=== PATIENT | female | born 1990 | race Caucasian/White ===

== ENCOUNTER 2017-02-22 05:06 | Emergency (ER) | payer OTHER ==
[~2017-02-22] VITALS: Ht 167.6 cm; Wt 98.0 kg
[~2017-02-22 05:06] MED LIST: ACET-141 PO; ACET325T33 PO; CYCL-319 PO; IBUP-1542 PO; IBUP800T25 PO; NAPR-260 PO; NITR-58 PO; ONDA4TAB8 PO
[2017-02-22 05:07] VITALS: Ht 167.6 cm; Wt 98.0 kg
[2017-02-22] MEDS ORDERED: morphine 4 MG/ML VIAL IV STA (05:18)
[2017-02-22] MEDS ORDERED: SOD CHLORIDE 0.9% 1,000 ML IV STA (05:18)
[2017-02-22] MEDS ORDERED: KETOROLAC 30 MG INJ IV STA (05:18)
[2017-02-22] MEDS ORDERED: ONDANSETRON 4 MG INJ IV STA (05:18)
--- NOTE | 2017-02-22 05:55 | ERD ---
ER Documentation Chief Complaint Chief Complaint right flank pain since 3 hours ago HPI This is a 26-year-old female presenting to emergency department with right- sided flank pain 2 days. Patient states pain worsened over the last 3 hours. Patient states she has sharp right-sided flank pain and rates pain 10/10. Patient states pain radiates from right flank to right pelvis and groin. No dysuria or hematuria. No fevers or chills. No nausea, vomiting or diarrhea. No constipation. ROS All systems reviewed and are negative except as per history of present illness. Medications Home Meds Active Scripts Nitrofurantoin Monohyd Macrocr* (Macrobid*) 100 Mg Capsr, 100 MG PO BID for 5 Days, CAP Prov:MEME CHOI NP 03/24/16 Ibuprofen* (Motrin*) 600 Mg Tab, 600 MG PO Q6, #15 TAB Prov:MEME CHOI NP 03/24/16 Ondansetron Hcl* (Zofran*) 4 Mg Tablet, 4 MG PO Q6H for NAUSEA AND/OR VOMITING, #10 TAB Prov:MEME CHOI NP 03/24/16 Acetaminophen* (Tylenol*) 325 Mg Tablet, 2 TAB PO Q8 Y for PAIN AND OR ELEVATED TEMP, #20 TAB [facility] 01/07/16 Naproxen* (Naprosyn*) 500 Mg Tablet, 500 MG PO BID Y for PAIN AND/OR INFLAMMATION, #20 TAB Prov:[facility] 01/07/16 Acetaminophen* (Acetaminophen*) 500 MG Extra Strength Tablet, 500 MG PO Q4H Y for PAIN AND OR ELEVATED TEMP, #20 TAB Prov:KARL ROMERO PA-C 09/07/15 Ibuprofen* (Motrin*) 600 Mg Tab, 600 MG PO Q6, #30 TAB Prov:KARL ROMERO PA-C 09/07/15 Nitrofurantoin Monohyd Macrocr* (Macrobid*) 100 Mg Capsr, 100 MG PO BID for 5 Days, CAP Prov:MEME CHOI NP 06/03/15 Cyclobenzaprine Hcl* (Cyclobenzaprine Hcl*) 10 Mg Tablet, 10 MG PO TID, #15 TAB Prov:MEME CHOI NP 2/6/16 Ibuprofen* (Motrin*) 800 Mg Tab, 800 MG PO Q6, #30 TAB Prov:MEME CHOI INSTALL AND REPAIR TECHNICIAN 06/03/15 Allergies Allergies: Coded Allergies: No Known Drug Allergies (Verified Allergy, Unknown, 09/07/15) PMhx/Soc Medical and Surgical Hx: pt denies Surgical Hx History of Surgery: No Anesthesia Reaction: No Hx Neurological Disorder: Yes (Migraine HAs) Hx Respiratory Disorders: No Hx Cardiac Disorders: No Hx Psychiatric Problems: No Hx Miscellaneous Medical Probl: Yes (kidney stones 2005) Hx Alcohol Use: Yes Hx Substance Use: Yes (marijuana) Hx Tobacco Use: Yes Smoking Status: Current every day smoker Physical Exam Vitals Vital Signs Date Time Temp Pulse Resp B/P Pulse Ox O2 Delivery O2 Flow Rate FiO2 02/22/17 05:07 97.8 88 20 126/61 99 Physical Exam Const: alert, crying Head: Atraumatic Eyes: Normal Conjunctiva ENT: Normal External Ears, Nose and Mouth. Neck: Full range of motion..~ No meningismus. Resp: Clear to auscultation bilaterally Cardio: Regular rate and rhythm, no murmurs Abd: Soft, non tender, non distended. Normal bowel sounds Skin: No petechiae or rashes Back: No midline or flank tenderness. No CVA tenderness Ext: No cyanosis, or edema Neur: Awake and alert Psych: Normal Mood and Affect Results 24 hrs Laboratory Tests Test 02/22/17 05:54 Bedside Urine pH (LAB) 7.0 Bedside Urine Protein (LAB) Trace Bedside Urine Glucose (UA) Negative Bedside Urine Ketones (LAB) Negative Bedside Urine Blood Trace-intact Bedside Urine Nitrite (LAB) Negative Bedside Urine Leukocyte Esterase (L 1+ Current Medications Medications (Trade) Dose Ordered Sig/Rahel Route PRN Reason Start Time Stop Time Status Last Admin Dose Admin Sodium Chloride (NS) 1,000 ml @ 1,000 mls/hr Q1H STAT IV 02/22/17 05:18 02/22/17 06:17 02/22/17 05:53 Morphine Sulfate (morphine) 4 mg ONCE STAT IV 02/22/17 05:18 02/22/17 05:20 DC 02/22/17 05:54 Ondansetron HCl (Zofran Inj) 4 mg ONCE STAT IV 02/22/17 05:18 02/22/17 05:20 DC 02/22/17 05:53 Ketorolac Tromethamine (Toradol) 30 mg ONCE STAT IV 02/22/17 05:18 02/22/17 05:20 DC 02/22/17 05:53 Procedures/MDM This is a 26-year-old female presenting to emerge department with right flank pain 2 days that worsened over the last 3 hours. Patient is afebrile and vital signs are stable. CBC, CMP, lipase, urine dip and urine ordered. IV access obtained and labs drawn. Patient given morphine 4 mg IV, Toradol 30 mg IV and Zofran 4 mg IV. Patient also given 1 L IV fluid bolus of normal saline. Urine dip shows 1+ leukocyte esterase, trace blood and trace protein. Urine negative. Patient signed out to Kirsten Sullivan NP pending labs and CT abdomen/pelvis results. Departure Diagnosis: Primary Impression: Flank pain Condition: Stable MEME CHOI NP Feb 22, 2017 05:55
--- NOTE | 2017-02-22 06:46 | RADRPT ---
PROCEDURE: CT abdomen and pelvis without contrast. CLINICAL INDICATION: Right flank pain TECHNIQUE: CT scan of the abdomen and pelvis without contrast was performed and is reconstructed a t 2.5 mm contiguous axial intervals from the dome of the diaphragm to the inferior pubic rami.. The patient was scanned without intravenous contrast. Sagittal and coronal reformatted images were obt ained from the axial source images. The calculated radiation dose measures 1419 mGy centimeters. The CTDI measures 22 mGy. Individualized dose optimization technique was used for the performance of this exam. This included 1. Automated exposure control. 2. Adjustment of the mA and / or kV according to the patient's size. 3. Use of iterative reconstructed technique. COMPARISON: None FINDINGS: The lung bases are clear of any infiltrate or nodule. No effusion is seen. The liver is of normal size, contour and attenuation with no mass or ductal dilatation. No gallston es are visualized. No splenic, adrenal or pancreatic abnormalities present. Kidneys are of normal size and contour. There is mild right hydroureter nephrosis with a 3 mm calc ulus immediately superjacent to the ureterovesicular junction. The left intrarenal collecting system and ureter are of normal course and caliber. No renal mass or calculus is seen.. No bladder mass o r stone is present. Uterus is normal. No adnexal mass is visualized. There is no aneurysm. No adenopathy is present. No bowel mass or obstruction is present. The appendix is normal. No phlegmon, ascites or pneumop eritoneum is visualized. The osseous structures are intact. IMPRESSION: Mild right hydroureter nephrosis with 3 mm calculus distal ureter. .Raudel Bowman MD, Date Time Electronically viewed and signed by .Raudel Bowman MD, MD on 02/22/2017 06:45 .A/
[2017-02-22] MEDS ORDERED: HYDR-906 PO (06:57)
[2017-02-22] MEDS ORDERED: IBUP-1542 PO (06:57)
[2017-02-22] MEDS ORDERED: CEPH-443 PO (07:00)
--- NOTE | 2017-02-22 07:07 | EN ---
Date/Time of Note Date/Time of Note DATE: 02/22/17 TIME: 07:02 ER Progress Note Patient sent out to me by Meme Choi NP pending CT and lab test results. Patient presented to ED for right flank pain. Patient has no history of kidney stone. CBC, CMP, and lipase are unremarkable. UA has 1+ leukocyte, trace blood, negative nitrite. PROCEDURE: CT abdomen and pelvis without contrast. CLINICAL INDICATION: Right flank pain TECHNIQUE: CT scan of the abdomen and pelvis without contrast was performed and is reconstructed at 2.5 mm contiguous axial intervals from the dome of the diaphragm to the inferior pubic rami.. The patient was scanned without intravenous contrast. Sagittal and coronal reformatted images were obtained from the axial source images. The calculated radiation dose measures 1419 mGy centimeters. The CTDI measures 22 mGy. Individualized dose optimization technique was used for the performance of this exam. This included 1. Automated exposure control. 2. Adjustment of the mA and / or kV according to the patient's size. 3. Use of iterative reconstructed technique. COMPARISON: None FINDINGS: The lung bases are clear of any infiltrate or nodule. No effusion is seen. The liver is of normal size, contour and attenuation with no mass or ductal dilatation. No gallstones are visualized. No splenic, adrenal or pancreatic abnormalities present. Kidneys are of normal size and contour. There is mild right hydroureter nephrosis with a 3 mm calculus immediately superjacent to the ureterovesicular junction. The left intrarenal collecting system and ureter are of normal course and caliber. No renal mass or calculus is seen.. No bladder mass or stone is present. Uterus is normal. No adnexal mass is visualized. There is no aneurysm. No adenopathy is present. No bowel mass or obstruction is present. The appendix is normal. No phlegmon , ascites or pneumoperitoneum is visualized. The osseous structures are intact. IMPRESSION: Mild right hydroureter nephrosis with 3 mm calculus distal ureter. .Raudel Bowman MD, Date Time Electronically viewed and signed by .Raudel Bowman MD, on 02/22/2017 06: 45 .A/ CC: MEME CHOI NP Medical decision-making: Patient has a nonobstructing stone in the distal ureter. Her urine is negative, I doubt ectopic , ovarian torsion, or ruptured ovarian cyst. She is comfortable and pain-free after morphine and Toradol in the ED. Patient advised to follow-up with her PCP for a urology referral. Patient appears well, stable for discharge and outpatient management. Medical decision making shared with patient and family. Education provided to patient and family. Patient and family expressed understanding of the plan. Medications on discharge: Ibuprofen, [place]. Follow-up: Primary care provider in 2-3 days or return to ED if worse. Disclaimer: Inadvertent spelling and grammatical errors are likely due to EHR/ dictation software use and do not reflect on the overall quality of patient care. Also, please note that the electronic time recorded on this note does not necessarily reflect the actual time of the patient encounter. SIMI TORRES NP Feb 22, 2017 07:07
[2017-02-22 07:13] VITALS: BP 128/61; PULSE 66; RESP 20; TEMP 98.7
[2017-02-22] MEDS ORDERED: HYDROCODONE/APAP (5/325) TAB PO ONE (07:30)
== END 2017-02-22 07:19 | disposition home or self-care (01) ==
LOC: FTE 05:06
DX: R10.9 Unspecified abdominal pain (principal); F17.210 Nicotine dependence, cigarettes, uncomplicated
CPT/HCPCS: 36415; 74176; 80053; 81003; 83690; 85025; 96374; 96375; J1885; J2270; J2405; J7030; Z7502; Z7610

== ENCOUNTER 2017-03-28 19:01 | Emergency (ER) | payer OTHER ==
[~2017-03-28] VITALS: Ht 167.6 cm; Wt 97.7 kg
[~2017-03-28 19:01] MED LIST changes: +CEPH-443 PO; +HYDR-906 PO
[2017-03-28 19:18] VITALS: Ht 167.6 cm; Wt 97.7 kg
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
[2017-03-28 21:08] LABS: BASOPHIL # 0.1 10^3/ul (0.0-0.1); BASOPHILS % 0.7 % (0.0-2.0); EOSINOPHILS # 0.4 10^3/ul (0.0-0.5); EOSINOPHILS % 3.9 % (0.0-7.0); HEMATOCRIT 39.3 % (37.0-47.0); LYMPHOCYTES # 2.8 10^3/ul (0.8-2.9); LYMPHOCYTES % 27.2 % (15.0-51.0); MEAN CORPUSCULAR HEMOGLOBIN 28.4 pg (29.0-33.0); MEAN CORPUSCULAR HGB CONC 33.1 g/dl (32.0-37.0); MEAN PLATELET VOLUME 10.5 fl (7.4-10.4); MONOCYTES % 9.3 % (0.0-11.0); NEUTROPHIL # 6.1 10^3/ul (1.6-7.5); NEUTROPHILS % 58.3 % (39.0-77.0); PLATELET COUNT 275 10^3/UL (140-415); RED BLOOD COUNT 4.57 10^6/ul (4.20-5.40); RED CELL DISTRIBUTION WIDTH 13.4 % (11.5-14.5); WHITE BLOOD COUNT 10.5 10^3/ul (4.8-10.8)
[2017-03-28 21:34] LABS: ALANINE AMINOTRANSFERASE 135 IU/L (13-69); ALBUMIN/GLOBULIN RATIO 1.33; ALKALINE PHOSPHATASE 157 IU/L (42-121); ANION GAP 13 (8-16); ASPARTATE AMINO TRANSFERASE 65 IU/L (15-46); BILIRUBIN,INDIRECT 0.3 mg/dl (0-1.1); BILIRUBIN,TOTAL 0.3 mg/dl (0.2-1.3); BLOOD UREA NITROGEN 16 mg/dl (7-20); CALCIUM 9.5 mg/dl (8.4-10.2); CARBON DIOXIDE 24 mmol/L (21-31); CHLORIDE 106 mmol/L (97-110); CREATININE 0.87 mg/dl (0.44-1.00); GLUCOSE 104 mg/dl (70-220); POTASSIUM 3.7 mmol/L (3.5-5.1); SODIUM 139 mmol/L (135-144)
[2017-03-28 21:37] LABS: C-REACTIVE PROTEIN < 0.5 mg/dl (0.0-0.9)
--- NOTE | 2017-03-28 21:39 | RADRPT ---
PROCEDURE: CR Left Elbow CLINICAL INDICATION: Pain TECHNIQUE: AP, lateral, and an oblique radiographs were submitted. COMPARISON: None FINDINGS: Osseous Structures: The osseous elements appear well mineralized and intact. Joint Spaces: The joint spaces are well maintained. No joint effusion is evident. Soft Tissues: There is mild soft tissue swelling dorsal to the olecranon. IMPRESSION: 1. Soft tissue swelling dorsal to the olecranon, probably related to olecranon bursitis. 2. Otherwise, unremarkable left elbow series. Physician Apple Date Time Electronically viewed and signed by Yanique Dailey Physician on 03/28/2017 21:38 /
[2017-03-28] MEDS ORDERED: NAPR-260 PO (22:32)
== END 2017-03-28 22:56 | disposition home or self-care (01) ==
LOC: FTE 19:01
DX: M70.22 Olecranon bursitis, left elbow (principal); Y93.9 Activity, unspecified; Z87.891 Personal history of nicotine dependence
CPT/HCPCS: 36415; 73080; 80053; 85025; 85651; 86140; Z7502

== ENCOUNTER 2018-01-12 14:18 | Emergency (ER) | END 2018-01-12 18:48 | disposition home or self-care (01) ==

== ENCOUNTER 2018-03-26 19:53 | Emergency (ER) | END 2018-03-26 23:12 | disposition home or self-care (01) ==

== ENCOUNTER 2018-04-01 11:08 | Emergency (ER) | END 2018-04-01 11:38 | disposition left against medical advice (07) ==

== ENCOUNTER 2018-04-01 11:38 | Emergency (ER) | END 2018-04-01 15:13 | disposition home or self-care (01) ==

== ENCOUNTER 2018-05-09 16:31 | Emergency (ER) | payer OTHER ==
[~2018-05-09] VITALS: Wt 101.8 kg
[~2018-05-09 16:31] MED LIST changes: -CYCL-319 PO; +CYCL10TA7 PO; +D-ME473S2 PO; +DOXY100T20 PO; +HYDR-4011 PO; -HYDR-906 PO; -IBUP800T25 PO; +IBUP800T48 PO; -NAPR-260 PO; +NAPR-985 PO
[2018-05-09 16:32] VITALS: BP 141/81; PULSE 88; RESP 18
[2018-05-09] MEDS ORDERED: ACETAMINOPHEN 500 MG TAB PO STA (18:30)
[2018-05-09] MEDS ORDERED: OXYMETAZOLINE 0.05% 15 ML NAS SPRAY NASAL ONE (18:30)
--- NOTE | 2018-05-09 19:34 | ERD ---
ER Documentation Chief Complaint Chief Complaint FLU LIKE SYMPTOMS X 2 DAYS, COUGH,RUNNY NOSE HPI 27-year-old female 15 weeks presenting with complaints of flulike symptoms for the past 2 days. She complains of cough and runny nose. She has a history of migraines and currently due to her congestion, her headaches have worsened. She has been unable to take any medications due to her . She denies any associated fevers or chills. No abdominal pain, chest pain, shortness of breath, or dysuria. Her headache is throbbing, on the right side and in the back of her head, nonradiating, 8 out of 10, with no alleviating or exacerbating factors. She denies any photophobia, vomiting, nausea, phonophobia or neck stiffness. ROS All systems reviewed and are negative except as per history of present illness. Medications Home Meds Active Scripts Cephalexin* (Keflex*) 500 Mg Capsule, 500 MG PO BID for 7 Days, CAP Prov:ADITI EDGE PA-C 03/26/18 Acetaminophen* (Tylenol*) 325 Mg Tablet, 2 TAB PO Q6 PRN for PAIN AND OR ELEVATED TEMP, #30 TAB Prov:GAEL ALFREDO PA-C 01/12/18 Dextromethorphan Hb-Promethazine Hcl* (Promethazine DM* Syrup) 473 Ml Syrup, 5 ML PO Q6 PRN for COUGH, #60 ML Prov:GAEL ALFREDO PA-C 01/12/18 Doxycycline Hyclate* (Doxycycline Hyclate*) 100 Mg Tablet.dr, 100 MG PO BID for 10 Days, TAB Prov:GAEL ALFREDO PA-C 01/12/18 Naproxen* (Naprosyn*) 500 Mg Tablet, 500 MG PO BID PRN for PAIN AND/OR INFLAMMATION, #30 TAB Prov:ANKIT LAUREANO 03/28/17 Cephalexin* (Keflex*) 500 Mg Capsule, 500 MG PO BID for 7 Days, CAP Prov:SIMI TORRES. [employer] SYSTEMS ENGINEER 02/22/17 Hydrocodone/Acetaminophen ([place] 5-325 Tablet) 1 Each Tablet, 1 TAB PO Q6H PRN for SEVERE PAIN LEVEL 7-10, #7 TAB Prov:SIMI TORRES. ROB[employer] SYSTEMS ENGINEER 02/22/17 Ibuprofen* (Motrin*) 600 Mg Tab, 600 MG PO Q6H PRN for PAIN AND OR ELEVATED TEMP, #30 TAB Prov:SIMI TORRESAmber MATHEWS 02/22/17 Nitrofurantoin Monohyd Macrocr* (Macrobid*) 100 Mg Capsr, 100 MG PO BID for 5 Days, CAP Prov:MEME CHOI NP 03/24/16 Ibuprofen* (Motrin*) 600 Mg Tab, 600 MG PO Q6, #15 TAB Prov:MEME CHOI NP 03/24/16 Ondansetron Hcl* (Zofran*) 4 Mg Tablet, 4 MG PO Q6H for NAUSEA AND/OR VOMITING, #10 TAB Prov:MEME CHOI NP 03/24/16 Acetaminophen* (Tylenol*) 325 Mg Tablet, 2 TAB PO Q8 PRN for PAIN AND OR ELEVATED TEMP, #20 TAB Prov:ROSLYN,[facility] 01/07/16 Naproxen* (Naprosyn*) 500 Mg Tablet, 500 MG PO BID PRN for PAIN AND/OR INFLAMMATION, #20 TAB Prov[facility] 01/07/16 Acetaminophen* (Acetaminophen*) 500 MG Extra Strength Tablet, 500 MG PO Q4H PRN for PAIN AND OR ELEVATED TEMP, #20 TAB Prov:KARL ROMERO PA-C 09/07/15 Ibuprofen* (Motrin*) 600 Mg Tab, 600 MG PO Q6, #30 TAB Prov:KARL ROMERO PA-C 09/07/15 Nitrofurantoin Monohyd Macrocr* (Macrobid*) 100 Mg Capsr, 100 MG PO BID for 5 Days, CAP Prov:MEME CHOI NP 06/03/15 Cyclobenzaprine Hcl* (Cyclobenzaprine Hcl*) 10 Mg Tablet, 10 MG PO TID, #15 TAB Prov:MEME CHOI NP 06/03/15 Ibuprofen* (Motrin*) 800 Mg Tab, 800 MG PO Q6, #30 TAB Prov:MEME CHOI NP 06/03/15 Allergies Allergies: Coded Allergies: No Known Drug Allergies (Verified Allergy, Unknown, 09/07/15) PMhx/Soc History of Surgery: No Anesthesia Reaction: No Hx Neurological Disorder: Yes (Migraine HAs) Hx Respiratory Disorders: No Hx Cardiac Disorders: No Hx Psychiatric Problems: No Hx Miscellaneous Medical Probl: Yes (kidney stones 2005) Hx Alcohol Use: No Hx Substance Use: No Hx Tobacco Use: No Smoking Status: Never smoker FmHx Family History: No diabetes Physical Exam Vitals Vital Signs Date Temp Pulse Resp B/P (MAP) Pulse Ox O2 O2 Flow FiO2 Time Delivery Rate 05/09/18 98.5 88 18 141/81 99 16:32 (101) Physical Exam Const: No acute distress, nontoxic Head: Atraumatic Eyes: Normal Conjunctiva, PERRLA ENT: Normal External Ears, Nose and Mouth. Posterior oropharynx normal without erythema or exudate. No stridor. Neck: Full range of motion. No meningismus. No cervical lymphadenopathy Resp: Clear to auscultation bilaterally Cardio: Regular rate and rhythm, no murmurs Abd: Soft, non tender, non distended. Normal bowel sounds Skin: No petechiae or rashes Back: No midline or flank tenderness Ext: No cyanosis, or edema Neur: Awake and alert, oriented, normal speech, no facial asymmetry, moving all extremities Psych: Normal Mood and Affect Results 24 hrs Current Medications Medications Dose Sig/[place] Start Time Status Last (Trade) Ordered Route PRN Stop Time Admin Dose Reason Admin 1,000 mg ONCE STAT 05/09/18 DC 05/09/18 Acetaminophen PO 18:30 18:43 (Tylenol 05/09/18 18:32 Tab) 2 spray ONCE ONCE 05/09/18 DC 05/09/18 Oxymetazoline NASAL 18:30 18:49 HCl (Afrin 05/09/18 18:32 Girdler) Procedures/MDM EMERGENT LABS AND DIAGNOSTIC STUDIES: Lab Results above were reviewed and interpreted by me. Rapid influenza negative Initial Nursing notes reviewed. Previous Medical Records requested via the Electronic Health Record. EMERGENCY DEPARTMENT COURSE / MEDICAL DECISION MAKING: Patient is presenting with likely of flulike illness with exacerbation of her chronic headaches. She is afebrile, well-appearing, neurovascularly intact with stable vitals. She was treated with Tylenol 1 g p.o. and provided with Afrin for her nasal congestion. Patient states that her headache has not significantly improved. At this point, given she is , we are limited with our treatment options. I recommended rest, Tylenol, and plenty of hydration at home. If any of her symptoms are to worsen, she was instructed to return to the emergency room. At this point I doubt any meningitis, encephalitis, subarachnoid hemorrhage, intracranial hemorrhage, or increased intracranial pressure. Patient's blood pressure was elevated (>120/80) but appears stable without hung dence of hypertensive emergency or urgency. The patient was counseled about the risks of hypertension and urged to pursue outpatient monitoring and therapy within a week with their primary care physician. Departure Diagnosis: Primary Impression: Headache Headache type: tension-type Headache chronicity pattern: episodic headache Intractability: not intractable Qualified Codes: G44.219 - Episodic tension-type headache, not intractable Additional Impression: URI (upper respiratory infection) URI type: unspecified URI Qualified Codes: J06.9 - Acute upper respiratory infection, unspecified Condition: Stable AUSTIN FUNG MD May 09, 2018 19:34
== END 2018-05-09 19:51 | disposition home or self-care (01) ==
LOC: FTE 16:31
DX: O99.355 Diseases of the nervous system complicating the puerperium (principal); O99.512 Diseases of the respiratory system complicating pregnancy, second trimester; Z3A.15 15 weeks gestation of pregnancy
CPT/HCPCS: 87400; Z7502; Z7610; 99283

== ENCOUNTER 2018-06-20 14:33 | Outpatient (CLI) | payer OTHER ==
[~2018-06-20] VITALS: Ht 162.6 cm; Wt 104.1 kg
[2018-06-20 14:49] VITALS: Ht 162.6 cm; Wt 104.1 kg
[2018-06-20 14:50] VITALS: BP 125/58; PULSE 88; RESP 20
--- NOTE | 2018-06-20 16:41 | TRIAGE ---
OB Triage Datetime Report Generated by CPN: 06/20/2018 16:41 Datetime: 06/20/2018 14:44 Time of Arrival: 06/20/2018 14:20 EGA: 21.2 Arrived By: Ambulatory Arrived From: Home Chief Complaint: HEADACHE (HX MIGRAINES) VOMITING FEVER Movement: Present Contractions: Denies/Absent Rupture of Membranes: Denies Vaginal Bleeding: None Vaginal Discharge: Denies Recent Sexual Intercouse: Denies Abdominal Trauma: Not Applicable Patient Complaints: None Provider Notified: DR PAZ Initial Plan: EFM,CALL DR PAZ Datetime: 06/20/2018 14:42 Maternal Assessment Level of Consciousness: Fully Conscious DTR's/Clonus: DTRs 2+; No Clonus Headache: Denies Blurred Vision: No Respiratory Effort: Unlabored; Regular Rhythm; Equal Expansion Breath Sounds, Left: Clear and Equal Breath Sounds, Right: Clear and Equal Nausea/Vomiting: Denies RUQ Epigastric Pain: Denies Facial Edema: None Temperature Route: Axillary Fall Risk Assessment History of Falling: (0) No Secondary Diagnosis: (0) No Ambulatory Aid: (0) Bedrest/Nurse Assist IV Therapy: (0) No Gait: (0) Normal/Bedrest/Immobile Mental Status: (0) Oriented to Own Ability Fall Score: 0 Fall Risk Score Definition: No Risk: No action required Datetime: 06/20/2018 14:40 Maternal Assessment Level of Consciousness: Fully Conscious DTR's/Clonus: DTRs 2+ Headache: Generalized Blurred Vision: No Nausea/Vomiting: Denies RUQ Epigastric Pain: Denies Facial Edema: None Labor Evaluation Frequency: NONE Heart Rate FHR Baseline Rate: 145 Monitor Mode: Doppler Vaginal Exam Membrane Status: Intact
--- NOTE | 2018-06-20 17:02 | PN ---
Triage Information Date/Time 06/20/18 Reason for visit: vomiting x4 headache entire head started from occipital region, aggrevated with bending down Weeks of Gestation 21w2d /Para Diabetes: none Hypertention: none Additional information pelvic discomfort on and off urinary frequency today known to have migrane for the last 3-4 yrs but never vomit,denies any flash light headache is 10/10 denies any diarrhea Objective Vital Signs Date Temp Pulse Resp B/P (MAP) Pulse Ox O2 O2 Flow FiO2 Time Delivery Rate 06/20/18 98.2 88 20 125/58 98 Room Air 14:50 (80) Heart Rate: 140's Contractions: None Exam CVA neg for tenderness abdomen soft neg for tenderness Results/Medications Results 24 hrs Laboratory Tests Test 06/20/18 15:00 Urine Color YELLOW Urine Clarity CLEAR Urine pH 7.0 Urine Specific [place] 1.010 Urine Ketones 1+ H Urine Nitrite NEGATIVE Urine Bilirubin NEGATIVE Urine Urobilinogen NEGATIVE Urine Leukocyte Esterase NEGATIVE Urine Hemoglobin NEGATIVE Urine Glucose NEGATIVE Urine Total Protein NEGATIVE Imaging Results CVL 4.0cm Disposition: Assessment/Plan A IUP 21w2d headache P to ER for futher evaluation EDEL PAZ MD Jun 20, 2018 17:02
== END 2018-06-20 16:40 | disposition home or self-care (01) ==
LOC: L-D 14:33 → OBT 14:33
PROVIDERS: ATTEND Obstetrics & Gynecology
DX: O26.892 Other specified pregnancy related conditions, second trimester (principal); R51 Headache; Z3A.21 21 weeks gestation of pregnancy
CPT/HCPCS: 76817; 81003; 87086; Z7500; G0463

== ENCOUNTER 2018-06-20 16:47 | Emergency (ER) | payer SELFPAY ==
[~2018-06-20] VITALS: Wt 103.6 kg
[2018-06-20 16:52] VITALS: BP 124/58; PULSE 80; RESP 18
== END 2018-06-20 18:46 | disposition left against medical advice (07) ==
LOC: FTE 16:47
DX: Z53.21 Procedure and treatment not carried out due to patient leaving prior to being seen by health care provider (principal)

== ENCOUNTER 2018-08-03 20:11 | Outpatient (CLI) | payer OTHER ==
[~2018-08-03] VITALS: Ht 162.6 cm; Wt 108.5 kg
[2018-08-03 20:34] VITALS: Ht 162.6 cm; Wt 108.5 kg
[2018-08-03] MEDS ORDERED: PREN-93 PO (20:34)
[2018-08-03 20:36] VITALS: BP 139/74; PULSE 94; RESP 20
[2018-08-03] MEDS: TERBUTALINE 1 MG/ML INJ SC SCH ×2 (21:26→22:55)
[2018-08-03] MEDS ORDERED: LACTATED RINGER'S 1,000 ML IV ONE (21:30)
[2018-08-03] MEDS ORDERED: LACTATED RINGER'S 1,000 ML IV* SCH (22:00)
[2018-08-03] MEDS ORDERED: NIFEdipine 10 MG CAP PO ONE (23:30)
[2018-08-04] MEDS ORDERED: NIFEdipine 10 MG CAP PO SCH (06:10)
--- NOTE | 2018-08-04 06:43 | PN ---
Triage Information Date/Time August 04, 2018 Reason for visit: Uterine contractions Weeks of Gestation 27w 5d /Para 4/3 Diabetes: none Hypertention: none Additional information Pt has been cramping q 4 to 5 minutes and having a constant back pain since 1500 on 08/03. No bleeding or leaking. PMHx: none. PSHx: none. NKDA. Objective Vital Signs Date Temp Pulse Resp B/P (MAP) Pulse Ox O2 O2 Flow FiO2 Time Delivery Rate 08/03/18 98.2 94 20 139/74 Room Air 20:36 (95) Heart Rate: 150's Heart Rate Comments Good heart rate accels to 170 BPM. No decels. Contractions: < 5 Minutes Apart Results/Medications Result Diagram: 08/03/18213908/03/182139 Results 24 hrs Laboratory Tests Test 08/03/18 20:05 08/03/18 21:40 Urine Color YELLOW Urine Clarity SLIGHTLY CLOUDY A Urine pH 6.0 Urine Specific [place] 1.018 Urine Ketones 1+ H Urine Nitrite NEGATIVE Urine Bilirubin NEGATIVE Urine Urobilinogen NEGATIVE Urine Leukocyte Esterase TRACE A Urine Microscopic RBC 2 Urine Microscopic WBC 6 H Urine Squamous Epithelial Cells FEW Urine Bacteria FEW A Urine Mucus FEW A Urine Hemoglobin NEGATIVE Urine Glucose 1+ H Urine Total Protein NEGATIVE White Blood Count 11.3 H Red Blood Count 4.07 L Hemoglobin 11.8 L Hematocrit 35.2 L Mean Corpuscular Volume 86.5 Mean Corpuscular Hemoglobin 29.0 Mean Corpuscular Hemoglobin Concent 33.5 Red Cell Distribution Width 13.2 Platelet Count 228 # Mean Platelet Volume 10.3 Immature Granulocytes % 2.300 H Neutrophils % 64.9 Lymphocytes % 18.8 Monocytes % 11.5 H Eosinophils % 2.0 Basophils % 0.5 Nucleated Red Blood Cells % 0.0 Immature Granulocytes # 0.260 H Neutrophils # 7.3 Lymphocytes # 2.1 Monocytes # 1.3 H Eosinophils # 0.2 Basophils # 0.1 Nucleated Red Blood Cells # 0.0 Sodium Level 138 Potassium Level 3.3 L Chloride Level 105 Carbon Dioxide Level 22 Anion Gap 11 Blood Urea Nitrogen 9 Creatinine 0.57 Est Glomerular Filtrat Rate mL/min > 60 Glucose Level 97 Calcium Level 9.4 Total Bilirubin 0.3 Direct Bilirubin 0.00 Indirect Bilirubin 0.3 Aspartate Amino Transf (AST/SGOT) 17 Alanine Aminotransferase (ALT/SGPT) 21 Alkaline Phosphatase 74 Total Protein 6.6 Albumin 3.5 Globulin 3.10 Albumin/Globulin Ratio 1.12 Medications Current Medications Lactated Ringer's 1,000 ml @ 125 mls/hr Q8H IV* Last administered on 08/03/18at 22:54; Admin Dose 125 MLS/HR; Start 08/03/18 at 22:00 Nifedipine (Procardia) 20 mg Q6 PO ; Start 08/04/18 at 06:10 Betamethasone Acet/Betameth SodPhos (Celestone Soluspan) 12 mg ONCE ONCE IM ; Start 08/04/18 at 07:00; Stop 08/04/18 at 07:01; Status UNV Imaging Results EFW 1234 grams, S=D. Anterior placenta, no previa. Cx 3.2 cm and closed. Transverse lie. POLYHYDRAMNIOS with an MALLORIE of 27 cm. Disposition: Discharge Assessment/Plan A: IUP at 27w 5d. False labor. Polyhydramnios. P: After 2 doses of terbutaline and one dose of Procardia 20 mg the contractions have spaced out substantially to q 30 minutes. Will give another dose of Procardia and then send the pt out with a Rx for Procardia 10 mg q 6 hours x 1 weeks. Will give one dose of beta methasone now and pt to return sometime tomorrow for a repeat dose. Pt to keep her appt at her clinic tomorrow. GLADIS MCGUIRE MD Aug 04, 2018 06:43
[2018-08-04] MEDS ORDERED: BETAMET NA PHOS/AC(6 MG/ML) 2 ML INJ SYG IM ONE (07:00)
--- NOTE | 2018-08-04 07:44 | TRIAGE ---
OB Triage Datetime Report Generated by CPN: 08/04/2018 07:43 Datetime: 08/04/2018 07:05 Assessment Type: Triage Datetime: 08/04/2018 07:04 Comments: REPORT REICEVED FROM REBBECA RN Datetime: 08/04/2018 05:23 Heart Rate FHR Baseline Rate: 140 Monitor Mode: External US Datetime: 08/04/2018 02:41 Pain Assessment Pain Scale: 3 Pain Presence: Intermittent Pain Type: Contraction; Ache Pain Location: Back Pain Relief Measures: Comfort Measures Datetime: 08/04/2018 01:41 Stage of : OB Triage Datetime: 08/03/2018 23:10 Stage of : OB Triage Comments: EFM removed per Dr.Reiche order Datetime: 08/03/2018 21:40 Assessment Type: Triage Datetime: 08/03/2018 21:26 Stage of : OB Triage Datetime: 08/03/2018 21:00 Stage of : OB Triage Labor Evaluation Frequency: 2-5 Monitor Mode: External Duration (sec)2399: 40-50 Quality: Mild Pattern: Normal: <= 5 Contractions in 10 Minutes Resting Tone [place]: Relaxed Heart Rate FHR Baseline Rate: 145 Monitor Mode: External US Variability: Moderate 6-25 bpm Accelerations: 10X10 Decelerations: Variable Comments: Appropriate for gestational age Datetime: 08/03/2018 20:45 Stage of : OB Triage Datetime: 08/03/2018 20:21 Stage of : OB Triage Assessment Type: Triage Time of Arrival: 08/03/2018 20:00 EGA: 27.4 Arrived By: Wheelchair Arrived From: Home Chief Complaint: Cramping q4-5mins with constant lower back pain Movement: Present Contractions: Regular Contractions: q4-5mins Rupture of Membranes: Denies Vaginal Bleeding: None Vaginal Discharge: Present Recent Sexual Intercouse: Denies Abdominal Trauma: Not Applicable Patient Complaints: Contractions; Cramping; Back Pain Time Provider Notified: 08/03/2018 20:45 Provider Notified: Initial Plan: UA, CBC, CMP, U/S for EFW _ cervical length, IV bolus with LR, Terbutaline Maternal Assessment Level of Consciousness: Fully Conscious DTR's/Clonus: DTRs 2+; No Clonus Headache: Denies Blurred Vision: No Respiratory Effort: Unlabored; Regular Rhythm; Equal Expansion Breath Sounds, Left: Clear and Equal Breath Sounds, Right: Clear and Equal Nausea/Vomiting: Denies RUQ Epigastric Pain: Denies Lower Extremities Edema: Bilateral Lower Extremities Degree: 2+ Upper Extremities Edema: None Degree: None Facial Edema: None Temperature Route: Oral Fall Risk Assessment History of Falling: (0) No Secondary Diagnosis: (0) No Ambulatory Aid: (0) Bedrest/Nurse Assist IV Therapy: (0) No Gait: (0) Normal/Bedrest/Immobile Mental Status: (0) Oriented to Own Ability Fall Score: 0 Fall Risk Score Definition: No Risk: No action required Pain Assessment Pain Scale: 7 Pain Presence: Intermittent Pain Type: Cramping; Sharp; Contraction; Ache Pain Location: Abdomen; Back Pain Relief Measures: Comfort Measures Datetime: 06/20/2018 14:44 EGA: 21.2 Datetime: 06/20/2018 14:42 Fall Score: 0 Fall Risk Score Definition: No Risk: No action required
== END 2018-08-04 07:37 | disposition home or self-care (01) ==
LOC: OBT 20:11 → L-D 20:12 → OBT 08-04 07:37
PROVIDERS: ATTEND Obstetrics & Gynecology
DX: O47.02 False labor before 37 completed weeks of gestation, second trimester (principal); O40.2XX0 Polyhydramnios, second trimester, not applicable or unspecified; Z3A.27 27 weeks gestation of pregnancy
CPT/HCPCS: 36415; 76815; 76817; 80053; 81001; 85025; 87086; 96360; 96361; 96372; J0702; J3105; J7120; Z7500; Z7610; G0463

== ENCOUNTER 2018-08-05 13:44 | Outpatient (CLI) | payer OTHER ==
[~2018-08-05] VITALS: Ht 162.6 cm; Wt 108.0 kg
[~2018-08-05 13:44] MED LIST changes: -ACET-141 PO; -ACET325T33 PO; -CEPH-443 PO; -CYCL10TA7 PO; -D-ME473S2 PO; -DOXY100T20 PO; -HYDR-4011 PO; -IBUP-1542 PO; -IBUP800T48 PO; -NAPR-985 PO; -NITR-58 PO; -ONDA4TAB8 PO; +PREN-93 PO
[2018-08-05 14:26] VITALS: Ht 162.6 cm; Wt 108.0 kg
[2018-08-05 14:27] VITALS: BP 130/62; PULSE 99
[2018-08-05] MEDS ORDERED: BETAMET NA PHOS/AC(6 MG/ML) 2 ML INJ SYG IM SCH (14:30)
--- NOTE | 2018-08-05 16:32 | PN ---
Triage Information Date/Time Reason for visit: Receiving second dose of betamethasone Weeks of Gestation 27 weeks and 6 days /Para Diabetes: none Hypertention: none Objective Vital Signs Date Temp Pulse Resp B/P (MAP) Pulse Ox O2 O2 Flow FiO2 Time Delivery Rate 08/05/18 98.2 99 130/62 Room Air 14:27 (84) Heart Rate: 130's Contractions: None Disposition: Discharge Assessment/Plan 27 years old with single intrauterine at the 27 weeks and 6 days present for receiving second dose of betamethasone for threatened labor. She states good movement. She denies nausea, vomiting, shortness of breath, chest pain, headache, visual changes, vaginal bleeding or LOF. -FHR: No sign of metabolic acidosis- Category I -Contractions: None -She received the second dose of steroids -Symptoms and sign of labor, preeclampsia, kick count discussed with patient, she voiced understanding. All of her questions answered. -Patient was discharged home in stable condition with the appropriate discharge instructions provided. I would like patient to have close follow-up with her primary physician or outpatient clinic in 1-2 days or return to triage for worsening symptoms or any other urgent concerns. JAXON GOVEA Aug 05, 2018 16:32
== END 2018-08-05 16:19 | disposition home or self-care (01) ==
LOC: L-D 13:44 → OBT 13:44 → L-D 14:01 → OBT 16:19
PROVIDERS: ATTEND Obstetrics & Gynecology
DX: O36.8920 Maternal care for other specified fetal problems, second trimester, not applicable or unspecified (principal); Z3A.27 27 weeks gestation of pregnancy
CPT/HCPCS: J0702; Z7500; G0463

== ENCOUNTER 2018-09-18 21:11 | Inpatient (IN) | payer OTHER ==
[~2018-09-18] VITALS: Ht 162.6 cm; Wt 112.4 kg
[2018-09-18 21:04] VITALS: Ht 162.6 cm; Wt 112.4 kg
[2018-09-18 21:21] VITALS: BP 130/62; PULSE 87; RESP 18
[2018-09-18] MEDS ORDERED: LACTATED RINGER'S 1,000 ML IV ONE (23:00)
--- NOTE | 2018-09-18 23:21 | HP ---
Date/Time of Note Date/Time of Note DATE: 09/18/18 TIME: 23:19 OB - History Hx of Present Free Text/Dictation 27-year-old 4 para 3 at 34 weeks and 1 day of gestation with estimated date of delivery November 01, 2018 She presents with chief complaint of uterine contractions every 3 to 5 minutes Patient reports positive movement, denies vaginal bleeding or leaking fluid Patient reports being admitted to the hospital in July 2018 with contractions She received betamethasone for lung maturity Additionally she was treated for urinary tract infection at that time Estimated Due Date: Nov 01, 2018 : 4 Para: 3 Care: Good Care Obstetrical Complications: Other ( contractions) Past Family/Social History * Past Medical, Surgical, Family and Obstetric Histories reviewed from chart. OB Admission Exam Vital Signs Vital Signs Vital Signs Date Temp Pulse Resp B/P (MAP) Pulse Ox O2 O2 Flow FiO2 Time Delivery Rate 09/18/18 98.5 87 18 130/62 Room Air 21:21 (84) Physical Exam HEENT: WNL Heart: Rhythm Normal Lungs: Clear, Equal Abdomen: WNL Extremities: Normal Reflexes: Normal Cervical Dilatation: 1cm Effacement: 25% Station: -3 Membranes: Intact Heart Rate: 140's Accelerations: Accelerations Present Decelerations: No Decelerations Varibility: Moderate Contractions on Admission: < 5 Minutes Apart Intensity: Moderate Last 72 hours Lab Results Urine Results - 72 Hrs Test 09/18/18 22:35 Urine Color YELLOW (YELLOW) Urine Clarity CLOUDY (CLEAR) A Urine pH 6.0 (5.0-9.0) Urine Specific [place] 1.020 (1.003-1.030) Urine Ketones NEGATIVE mg/dL (NEGATIVE) Urine Nitrite NEGATIVE mg/dL (NEGATIVE) Urine Bilirubin NEGATIVE mg/dL (NEGATIVE) Urine Urobilinogen 1+ mg/dL (NEGATIVE) H Urine Leukocyte Esterase 3+ Ivonne/ul (NEGATIVE) H Urine Microscopic RBC 5 /HPF (0-5) Urine Microscopic WBC 21 /HPF (0-5) H Urine Squamous Epithelial Cells MODERATE /HPF (FEW) Urine Calcium Oxalate Crystals FEW /HPF (NONE SEEN) A Urine Bacteria FEW /HPF (NONE SEEN) A Urine Hemoglobin 1+ mg/dL (NEGATIVE) H Urine Glucose NEGATIVE mg/dL (NEGATIVE) Urine Total Protein NEGATIVE mg/dl (NEGATIVE) Hematology - 72 Hrs Test 09/18/18 23:50 Hematocrit 35.6 % (37.0-47.0) L Hemoglobin 11.8 g/dl (12.0-16.0) L Mean Corpuscular Hemoglobin 28.5 pg (29.0-33.0) L Mean Corpuscular Hemoglobin Concent 33.1 g/dl (32.0-37.0) Mean Corpuscular Volume 86.0 fl (82.0-101.0) Mean Platelet Volume 11.1 fl (7.4-10.4) H Platelet Count 231 10^3/UL (140-415) Red Blood Count 4.14 10^6/ul (4.20-5.40) L Red Cell Distribution Width 13.5 % (11.5-14.5) White Blood Count 9.3 10^3/ul (4.8-10.8) Chemistry Test 09/18/18 23:50 Sodium Level 136 mmol/L (135-144) Potassium Level 3.7 mmol/L (3.5-5.1) Chloride Level 106 mmol/L (97-110) Carbon Dioxide Level 23 mmol/L (21-31) Anion Gap 7 (5-13) Blood Urea Nitrogen 8 mg/dl (7-20) Creatinine 0.46 mg/dl (0.44-1.00) Est Glomerular Filtrat Rate mL/min > 60 mL/min (>60) Glucose Level 84 mg/dl (70-220) Calcium Level 9.5 mg/dl (8.4-10.2) Total Bilirubin 0.4 mg/dl (0.2-1.3) Direct Bilirubin 0.00 mg/dl (0.00-0.20) Indirect Bilirubin 0.4 mg/dl (0-1.1) Aspartate Amino Transf (AST/SGOT) 22 IU/L (15-46) Alanine Aminotransferase (ALT/SGPT) 19 IU/L (13-69) Alkaline Phosphatase 113 IU/L (42-121) Total Protein 6.5 g/dl (6.1-8.1) Albumin 3.5 g/dl (3.3-4.9) Globulin 3.00 g/dl (1.3-3.2) Albumin/Globulin Ratio 1.16 PROCEDURE: US OB biophysical profile. CLINICAL INDICATION: Contractions TECHNIQUE: Multiple sonographic images of the pelvis were obtained. The images were reviewed on a PACS workstation. COMPARISON: US PELVIS 03/26/2018 FINDINGS: Single live intrauterine gestation. MALLORIE = 21.6 cm. Cardiac activity is present with 137 beats per minute. Cephalic presentation. Placental location is anterior. No evidence of previa or abruption. Biophysical profile as follows: movement 2/2 tone 2/2 breathing 2/2 MALLORIE 2/2 Total 12/03 IMPRESSION: Biophysical profile 12/03. RPTAT: [facility] Physician Yessica Date Time Electronically viewed and signed by Physician Yessica on 09/19/2018 00:16 xB/ CC: JONATHAN MARTINEZ MD [id number] PROCEDURE: US OB. CLINICAL INDICATION: labor TECHNIQUE: Multiple sonographic images of the pelvis were obtained. The images were reviewed on a PACS workstation. COMPARISON: US PELVIS 09/18/2018; US 08/03/2018 FINDINGS: There is a single live intrauterine gestation. Cardiac activity is present with beats per minute. Cephalic presentation. Measurements were made in order to determine age. The results are as follows: BPD = 9.13 cm 37 weeks 0 days HC = 32.74 cm 37 weeks 1 day AC = 30.50 cm 34 weeks 3 days FL = 6.47 cm 33 weeks 3 days Estimated gestational age of approximately 35 weeks 4 days. The estimated date of delivery is 10/20/2018. Estimated weight = 2490 grams (5 lb 8 oz), at 60th percentile on current exam. No anatomic abnormalities demonstrated. The placenta is anterior. There is no evidence for an abruption or placenta previa. Amniotic fluid volume appears adequate. IMPRESSION: Single live intrauterine gestation of measuring approximately 35 8 weeks 4 days. Estimated [id number] grams. RPTAT: [facility] x-Erasmo Bowns, Physician Date Time Electronically viewed and signed by Physician Yessica on 09/19/2018 01:35 xB/ CC: JONATHAN MARTINEZ MD [id number] OB Assessment/Plan Reason for admission: labor, other (Polyhydramnios and urinary tract infection) Other plan: Urinalysis consistent with UTI Urine culture was sent IV antibiotics IV fluids Patient received terbutaline subQ x2 Initiate second set of betamethasone for lung maturity Perinatology consultation Copies To: CC: FRANCO MOORE MD ; JONATHAN MARTINEZ MD September 18, 2018 23:21
[2018-09-19] MEDS ORDERED: LACTATED RINGER'S 1,000 ML IV SCH
[2018-09-19] MEDS ORDERED: TERBUTALINE 1 MG/ML INJ SC ONE ×2 (00:30→01:00)
[2018-09-19] MEDS: BETAMET NA PHOS/AC(6 MG/ML) 2 ML INJ SYG IM SCH (02:31)
--- NOTE | 2018-09-19 02:52 | TRIAGE ---
OB Triage Datetime Report Generated by CPN: 09/19/2018 02:51 Datetime: 09/19/2018 01:30 Monitor Mode: External US Datetime: 09/19/2018 01:29 Labor Evaluation Frequency: IRREGULAR Monitor Mode: External Duration (sec)2399: 50-60 Quality: Moderate Pattern: Normal: <= 5 Contractions in 10 Minutes Resting Tone Corrigan: Relaxed Heart Rate FHR Baseline Rate: 125 Monitor Mode: External US Variability: Moderate 6-25 bpm Accelerations: 15X15 Decelerations: None Category: Category I Datetime: 09/19/2018 01:19 Monitor Mode: External Monitor Mode: External US Datetime: 09/19/2018 01:00 Labor Evaluation Frequency: X2 Monitor Mode: External Duration (sec)2399: 50-60 Quality: Mild Pattern: Normal: <= 5 Contractions in 10 Minutes Resting Tone Corrigan: Relaxed Heart Rate FHR Baseline Rate: 125 Monitor Mode: External US FHR Baseline Changes: No Baseline Change Variability: Moderate 6-25 bpm Accelerations: 15X15 Decelerations: None Category: Category I Datetime: 09/19/2018 00:11 Vaginal Bleeding: None Maternal Assessment Level of Consciousness: Fully Conscious DTR's/Clonus: DTRs 2+; No Clonus Headache: Denies Blurred Vision: No Respiratory Effort: Unlabored; Regular Rhythm; Equal Expansion Breath Sounds, Left: Clear and Equal Breath Sounds, Right: Clear and Equal Nausea/Vomiting: Denies RUQ Epigastric Pain: Denies Facial Edema: None Fall Risk Assessment History of Falling: (0) No Secondary Diagnosis: (0) No Ambulatory Aid: (0) Bedrest/Nurse Assist IV Therapy: (0) No Gait: (0) Normal/Bedrest/Immobile Mental Status: (0) Oriented to Own Ability Fall Score: 0 Fall Risk Score Definition: No Risk: No action required Datetime: 09/19/2018 00:00 Labor Evaluation Frequency: 6 Monitor Mode: External Duration (sec)2399: 70 Quality: Mild Pattern: Normal: <= 5 Contractions in 10 Minutes Resting Tone Corrigan: Relaxed Heart Rate FHR Baseline Rate: 125 Monitor Mode: External US FHR Baseline Changes: No Baseline Change Variability: Moderate 6-25 bpm Accelerations: 15X15 Decelerations: None Category: Category I Pain Assessment Pain Scale: 8 Pain Presence: Intermittent Pain Type: Contraction Pain Location: Abdomen Datetime: 09/18/2018 23:44 Monitor Mode: External US Datetime: 09/18/2018 23:21 Monitor Mode: External US Datetime: 09/18/2018 23:00 Labor Evaluation Frequency: 2-4 Monitor Mode: External Duration (sec)2399: 50-90 Quality: Moderate Pattern: Normal: <= 5 Contractions in 10 Minutes Resting Tone Corrigan: Relaxed Heart Rate FHR Baseline Rate: 125 Monitor Mode: External US Variability: Moderate 6-25 bpm Accelerations: 15X15 Decelerations: None Category: Category I Datetime: 09/18/2018 22:32 Vaginal Exam Dilatation (cms): 1.0 Effacement (%): 20 Station: -3 Exam By: LUCY Rao RN Membrane Status: Intact Cervix, Position: Posterior Datetime: 09/18/2018 22:00 Labor Evaluation Frequency: NONE Monitor Mode: External Heart Rate FHR Baseline Rate: 130 Monitor Mode: External US Variability: Moderate 6-25 bpm Accelerations: 15X15 Decelerations: None Category: Category I Datetime: 09/18/2018 21:42 Time of Arrival: 09/18/2018 21:04 EGA: 34.1 Arrived By: Ambulatory Arrived From: Home Chief Complaint: c/o cramping and lower back pain that has gotten worse since this morning Movement: Present Contractions: Occasional Time Contractions Began: 09/18/2018 07:00 Contractions: 6 in one hour Rupture of Membranes: Denies Vaginal Bleeding: None Vaginal Discharge: Present Recent Sexual Intercouse: Denies Abdominal Trauma: Not Applicable Patient Complaints: Cramping; Back Pain Time Provider Notified: 09/18/2018 22:05 Provider Notified: JUAN Initial Plan: EFM Datetime: 09/18/2018 21:40 Monitor Mode: External Datetime: 09/18/2018 21:21 Stage of : OB Triage Assessment Type: Triage Maternal Assessment Level of Consciousness: Fully Conscious DTR's/Clonus: DTRs 2+; No Clonus Headache: Denies Blurred Vision: No Respiratory Effort: Unlabored; Regular Rhythm; Equal Expansion Breath Sounds, Left: Clear and Equal Breath Sounds, Right: Clear and Equal Nausea/Vomiting: Denies RUQ Epigastric Pain: Denies Facial Edema: None Temperature Route: Oral Fall Risk Assessment History of Falling: (0) No Secondary Diagnosis: (0) No Ambulatory Aid: (0) Bedrest/Nurse Assist IV Therapy: (0) No Gait: (0) Normal/Bedrest/Immobile Mental Status: (0) Oriented to Own Ability Fall Score: 0 Fall Risk Score Definition: No Risk: No action required Pain Assessment Pain Scale: 8 Pain Presence: Intermittent Pain Type: Cramping Pain Location: Back (Annotations: lower abdomen) Datetime: 08/05/2018 15:16 Labor Evaluation Frequency: 0 Monitor Mode: External Resting Tone Corrigan: Relaxed Heart Rate FHR Baseline Rate: 145 Monitor Mode: External US Variability: Moderate 6-25 bpm Accelerations: 10X10 Decelerations: None Category: Category I Pain Assessment Pain Scale: 0 Pain Presence: None/Denies Pain Type: N/A Datetime: 08/05/2018 14:31 Stage of : OB Triage Assessment Type: Triage Maternal Assessment Level of Consciousness: Fully Conscious DTR's/Clonus: DTRs 2+; No Clonus Headache: Denies Blurred Vision: No Respiratory Effort: Unlabored; Regular Rhythm; Equal Expansion Breath Sounds, Left: Clear and Equal Breath Sounds, Right: Clear and Equal Nausea/Vomiting: Denies RUQ Epigastric Pain: Denies Facial Edema: None Temperature Route: Axillary Fall Risk Assessment History of Falling: (0) No Secondary Diagnosis: (0) No Ambulatory Aid: (0) Bedrest/Nurse Assist IV Therapy: (0) No Gait: (0) Normal/Bedrest/Immobile Mental Status: (0) Oriented to Own Ability Fall Score: 0 Fall Risk Score Definition: No Risk: No action required Datetime: 08/05/2018 14:25 Time of Arrival: 08/05/2018 14:30 EGA: 27.6 Arrived By: Ambulatory Arrived From: Home Chief Complaint: 2ND DOSE OF BETHAMETASONE Movement: Present Contractions: Denies/Absent Rupture of Membranes: Denies Vaginal Bleeding: None Vaginal Discharge: Denies Recent Sexual Intercouse: Denies Abdominal Trauma: Not Applicable Initial Plan: APPLIED MONITORS, MD Datetime: 08/05/2018 14:19 Comments: MONITORS APPLIED Datetime: 08/04/2018 07:04 Stage of : OB Triage Datetime: 08/04/2018 07:00 Stage of : OB Triage Labor Evaluation Frequency: x1 with irritability Monitor Mode: External Duration (sec)2399: 20-70 Quality: Mild Pattern: Normal: <= 5 Contractions in 10 Minutes Resting Tone Corrigan: Relaxed Datetime: 08/04/2018 06:34 Stage of : OB Triage Temperature Route: Oral Pain Assessment Pain Scale: 3 Pain Presence: Intermittent Pain Type: Cramping Pain Location: Abdomen; Back Pain Relief Measures: Comfort Measures Datetime: 08/04/2018 06:30 Stage of : OB Triage Datetime: 08/04/2018 06:00 Stage of : OB Triage Labor Evaluation Frequency: x3 Monitor Mode: External Duration (sec)2399: 40-80 Quality: Mild Pattern: Normal: <= 5 Contractions in 10 Minutes Resting Tone Corrigan: Relaxed Heart Rate FHR Baseline Rate: 140 Monitor Mode: External US Datetime: 08/04/2018 05:00 Stage of : OB Triage Labor Evaluation Frequency: Irritability Monitor Mode: External Duration (sec)2399: 20-30 Quality: Mild Pattern: Normal: <= 5 Contractions in 10 Minutes Resting Tone Corrigan: Relaxed Datetime: 08/04/2018 04:00 Stage of : OB Triage Labor Evaluation Frequency: None Monitor Mode: External Resting Tone Corrigan: Relaxed Datetime: 08/04/2018 03:00 Stage of : OB Triage Labor Evaluation Frequency: Occasional Monitor Mode: External Duration (sec)2399: 40 Quality: Mild Pattern: Normal: <= 5 Contractions in 10 Minutes Resting Tone Corrigan: Relaxed Datetime: 08/04/2018 02:00 Stage of : OB Triage Labor Evaluation Frequency: Irritability Monitor Mode: External Duration (sec)2399: 20-30 Quality: Mild Pattern: Normal: <= 5 Contractions in 10 Minutes Resting Tone Corrigan: Relaxed Datetime: 08/04/2018 01:00 Stage of : OB Triage Labor Evaluation Frequency: x1 with irritability Monitor Mode: External Duration (sec)2399: 20-110 Quality: Mild Pattern: Normal: <= 5 Contractions in 10 Minutes Resting Tone Corrigan: Relaxed Comments: Pt reports positive movt. Datetime: 08/04/2018 00:04 Temperature Route: Oral Contraction Comments: Pt reports feeling 3 uc's in last hr Datetime: 08/04/2018 00:00 Stage of : OB Triage Labor Evaluation Frequency: Occasional Monitor Mode: External Duration (sec)2399: 40 Quality: Mild Pattern: Normal: <= 5 Contractions in 10 Minutes Resting Tone Corrigan: Relaxed Datetime: 08/03/2018 23:00 Stage of : OB Triage Labor Evaluation Frequency: Irregular Monitor Mode: External Duration (sec)2399: 40-60 Quality: Mild Pattern: Normal: <= 5 Contractions in 10 Minutes Resting Tone Corrigan: Relaxed Heart Rate FHR Baseline Rate: 145 Monitor Mode: External US FHR Baseline Changes: No Baseline Change Variability: Moderate 6-25 bpm Accelerations: 15X15 Decelerations: Variable Datetime: 08/03/2018 22:00 Stage of : OB Triage Labor Evaluation Frequency: Irregular Monitor Mode: External Duration (sec)2399: 40-70 Quality: Mild Pattern: Normal: <= 5 Contractions in 10 Minutes Resting Tone Corrigan: Relaxed Heart Rate FHR Baseline Rate: 145 Monitor Mode: External US FHR Baseline Changes: No Baseline Change Variability: Moderate 6-25 bpm Accelerations: 15X15 Datetime: 08/03/2018 21:49 Stage of : OB Triage Datetime: 08/03/2018 20:21 EGA: 27.4 Fall Score: 0 Fall Risk Score Definition: No Risk: No action required Datetime: 06/20/2018 14:44 EGA: 21.2 Datetime: 06/20/2018 14:42 Fall Score: 0 Fall Risk Score Definition: No Risk: No action required
[2018-09-19] MEDS: SOD CHLORIDE 0.9% 1,000 ML IV SCH ×4 (02:55→20:39)
[2018-09-19] MEDS: CEFTRIAXONE 1 GM/50 ML (PMX) 50 ML IVPB SCH (02:56)
[2018-09-19] MEDS: PRENATAL VITAMIN PO SCH (09:33)
--- NOTE | 2018-09-19 10:28 | QN ---
Documentation Comment progress note patient seen and evaluated no complaints vs stable afebrile ab gravid nt no cva b/l extremity no edema no calf tenderness a/ iup at 34 wks ga, tptl, uti, increase laurie currently on steroid treatment p/ perinatology consult FRANCO MOORE MD September 19, 2018 10:28
[2018-09-19] MEDS ORDERED: ACETAMINOPHEN 325 MG TAB PO PRN (17:28)
[2018-09-20] MEDS: BETAMET NA PHOS/AC(6 MG/ML) 2 ML INJ SYG IM SCH (02:40)
[2018-09-20] MEDS: CEFTRIAXONE 1 GM/50 ML (PMX) 50 ML IVPB SCH (02:51)
[2018-09-20] MEDS: SOD CHLORIDE 0.9% 1,000 ML IV SCH ×3 (05:25→21:45)
--- NOTE | 2018-09-20 08:56 | CONS ---
Consultation Date/Type/Reason Admit Date/Time September 18, 2018 at 23:55 Date of Consultation: September 20, 2018 Type of Consult Medicine Reason for Consultation Requested by Dr. Ching to estate planning counselor mother regarding anticipated course and potential complications associated with delivery at 34 completed weeks having completed 2 full course of steroids. Mother is a 27 yo [id number] with EDC 10/29/2018 ( EGA 34 3/7 wks). labs: HBsAg-, RPR NR, HIV -, Rubella immune, and GBS Unknown. Past history of labor associated with UTI in 07/2018. Admitted to L&D and received full course of steroids. Developed recurrent labor 09/18 and admitted to L&D, treated with Terbutaline X 2, and steroids repeated early AM 09/19 and 09/20. Again, UTI detected and treated with Rocephin. Discussed with mother requirement for infants born at 34 completed weeks to be monitored in NICU. Discussed possibility of respiratory complications and requirement for respiratory support, although diminished due to steroids. Discussed possibility of infection complications, but unlikely. Emph asized likelihood of feeding problems, temperature instability, and jaundice. Mother appeared to understand and asked appropriate questions. Assured mother of availability to answer further questions should they arise. Date/Time of Note DATE: 09/20/18 TIME: 08:38 Past Medical History Home Meds Reported Medications Vit No.124/Iron/FA ( Vitamin Tablet) 1 Each Tablet, 1 EACH PO DAILY, TAB 08/03/18 Medications Current Medications Prenat Multivit/ General Production Worker/Iron/Folic Ac () 1 tab DAILY PO Last administered on 09/19/18at 09:33; Admin Dose 1 TAB; Start 09/19/18 at 09:00 Ceftriaxone Sodium 50 ml @ 100 mls/hr Q24H IVPB Last administered on 09/20/18at 02:51; Admin Dose 100 MLS/HR; Start 09/19/18 at 02:30 Sodium Chloride 1,000 ml @ 125 mls/hr Q8H IV Last administered on 09/20/18at 05:25; Admin Dose 125 MLS/HR; Start 09/19/18 at 02:30 Acetaminophen (Tylenol Tab) 650 mg Q4H PRN PO MILD PAIN(1-3)OR ELEVATED TEMP Last administered on 09/19/18at 17:33; Admin Dose 650 MG; Start 09/19/18 at 17:28 Allergies: Coded Allergies: No Known Allergy (Unverified , 09/18/18) Social History Smoking Status: Never smoker Exam/Review of Systems Exam Vitals Vital Signs Date Temp Pulse Resp B/P (MAP) Pulse Ox O2 O2 Flow FiO2 Time Delivery Rate 09/18/18 98.5 87 18 130/62 Room Air 21:21 (84) Intake and Output 09/19/18 09/19/18 09/20/18 1515:00 23:00 07:00 IntakeIntake Total 1000 ml 750 ml 750 ml OutputOutput Total 1125 ml 200 ml 2650 ml BalanceBalance -125 ml 550 ml -1900 ml Results Result Diagram: 09/18/18 2350 09/18/18 2350 Results 24hrs Laboratory Tests Test 09/20/18 06:42 Lab Scanned Report REFERENCE LAB Medications Medication Current Medications Prenat Multivit/ General Production Worker/Iron/Folic Ac () 1 tab DAILY PO Last administered on 09/19/18at 09:33; Admin Dose 1 TAB; Start 09/19/18 at 09:00 Ceftriaxone Sodium 50 ml @ 100 mls/hr Q24H IVPB Last administered on 09/20/18at 02:51; Admin Dose 100 MLS/HR; Start 09/19/18 at 02:30 Sodium Chloride 1,000 ml @ 125 mls/hr Q8H IV Last administered on 09/20/18at 05:25; Admin Dose 125 MLS/HR; Start 09/19/18 at 02:30 Acetaminophen (Tylenol Tab) 650 mg Q4H PRN PO MILD PAIN(1-3)OR ELEVATED TEMP Last administered on 09/19/18at 17:33; Admin Dose 650 MG; Start 09/19/18 at 17:28 BRIGITTE HIGGINS MD September 20, 2018 08:55
[2018-09-20] MEDS: PRENATAL VITAMIN PO SCH (09:36)
[2018-09-20] MEDS ORDERED: NIFEdipine 10 MG CAP ONE (10:39)
[2018-09-20] MEDS ORDERED: NIFEdipine 10 MG CAP PO SCH (14:00)
[2018-09-20] MEDS: NIFEdipine 10 MG CAP PO SCH ×2 (16:29→22:50)
--- NOTE | 2018-09-20 20:32 | QN ---
Documentation Comment HD #2 IUP at 34w 3d. PTL. UTI. Pt was initially given 2 doses of terbutaline which stopped the contractions and was given Betamethasone x 2 , the 2nd dose of which she got this AM. Early this AM she started to have some decels to 90 BPM but the UC's were not being picked up as it can be difficult with the pt's body habitus. When they were picked up they were definitely related to the contractions and one or 2 were late. The tracing is reactive otherwise. She was started on Procardia 10 mg q 8 hours which was not adequate and then upped to 20 q 6 hours. There are not any contractions at this time. Will continue care, at this time. Did order umbilical artery SD ratios to be done which has yet to occur. GLADIS MCGUIRE MD September 20, 2018 20:32
[2018-09-21] MEDS: CEFTRIAXONE 1 GM/50 ML (PMX) 50 ML IVPB SCH (02:49)
[2018-09-21] MEDS: NIFEdipine 10 MG CAP PO SCH ×4 (05:23→17:49)
[2018-09-21] MEDS: SOD CHLORIDE 0.9% 1,000 ML IV SCH ×3 (05:52→23:59)
[2018-09-21] MEDS: PRENATAL VITAMIN PO SCH (09:48)
[2018-09-21] MEDS ORDERED: LACTATED RINGER'S 1,000 ML IV SCH (20:44)
[2018-09-21] MEDS ORDERED: MAGNESIUM SULFATE 20 GM/500 ML 500 ML IV SCH (20:44)
[2018-09-21] MEDS ORDERED: MAGNESIUM SULFATE 4 GM/100 ML 100 ML IV ONE (21:00)
[2018-09-22] MEDS: CEFTRIAXONE 1 GM/50 ML (PMX) 50 ML IVPB SCH (02:45)
[2018-09-22] MEDS ORDERED: SOD CHLORIDE 0.9% 1,000 ML IV SCH (04:30)
--- NOTE | 2018-09-22 07:56 | QN ---
Documentation Comment progress note patient seen and evaluated complains of occasional ctx vs stable afebrile ab gravid nt no cva b/l extremity no edema no calf tenderness fhr cat 1 toco occasional a/ iup at 35 wks ga, tptl, uti, increase laurie completed steroid treatment p/ perinatology consult discontinue tocolysis FRANCO MOORE MD September 22, 2018 07:56
[2018-09-22] MEDS: PRENATAL VITAMIN PO SCH (09:08)
[2018-09-22] MEDS ORDERED: CEPHALEXIN 500 MG CAP PO SCH ×2 (09:30→21:00)
[2018-09-22] MEDS: NIFEdipine 10 MG CAP PO SCH ×3 (14:37→23:34)
[2018-09-22] MEDS: LACTATED RINGER'S 1,000 ML IV SCH (19:58)
[2018-09-23] MEDS: LACTATED RINGER'S 1,000 ML IV SCH (01:30)
--- NOTE | 2018-09-23 05:02 | QN ---
Documentation Comment progress note patient seen and evaluated no complaints vs stable afebrile ab gravid nt no cva b/l extremity no edema no calf tenderness fhr cat 1 toco occasional a/ iup at 35 wks ga, tptl, uti completed steroid treatment p/ discharge home today after bpp is complete FRANCO MOORE MD September 23, 2018 05:02
--- NOTE | 2018-09-23 05:06 | PD.PPDC ---
THEATER USHER Discharge Instruction Condition [id number] Patient Condition: [id number] Good Diet [id number] Diet: [id number] Resume Regular Diet Activity/Restrictions [id number] Activity: [id number] Normal Activity Follow-up Follow-up with Physician: 1, Day/Days Return to clinic for [id number] DIRECTOR DATA ARCHITECTURE Instructions: [id number] Fever greater than 101 Chills Worsening abdominal pain Excessive Vaginal Bleeding More than 2 pads per hour Unable to tolerate diet [id number] OB Instructions: [id number] Breast Tenderness Depression Blurried Vision Headache FRANCO MOORE MD September 23, 2018 05:06
[2018-09-23] MEDS: NIFEdipine 10 MG CAP PO SCH (06:00)
--- NOTE | 2018-09-23 20:39 | DS ---
DATE OF ADMISSION: 09/18/2018 DATE OF DISCHARGE: 09/23/2018 PRIMARY DIAGNOSIS: A 27-year-old 4, para 3, intrauterine at 34 weeks gestational a ge, third and labor, urinary tract infection, undelivered. PROCEDURE: None. CONDITION ON DISCHARGE: Stable. ACTIVITY: As tolerates. DIET: Regular. MEDICATIONS ON DISCHARGE: Keflex 500 mg p.o. t.i.d. DISCHARGE SUMMARY: Ms. Keny Suarez was admitted on 09/18/2018 secondary to urinary and s uspected urinary tract infection. She was started on IV fluids and given IV antibiotics. Her urine culture was reported to be strep pneumoniae susceptible to Keflex. She currently is lying in supine position with no apparent distress. She denies any contractions, nausea, vomiting, shortness of nikolai th, or visual changes. She will be discharged home today with strict labor and kick co unt precautions. Recommended to follow up in office tomorrow for her followup and care. Dictated By: FRANCO ASENCIO/LEEANNA Conf#: [id number] DID#: [id number]
== END 2018-09-23 07:40 | disposition home or self-care (01) | DRG 832 ==
LOC: L-D 21:11 → OBT 21:11 → L-D 23:55
PROVIDERS: ADMIT Obstetrics & Gynecology; ATTEND Obstetrics & Gynecology
DX: O60.03 Preterm labor without delivery, third trimester (principal); O40.3XX0 Polyhydramnios, third trimester, not applicable or unspecified; O23.43 Unspecified infection of urinary tract in pregnancy, third trimester; Z3A.34 34 weeks gestation of pregnancy
CPT/HCPCS: 76815; 76818; 76820; 80053; 80307; 81001; 83735; 85025; 85610; 85730; 86592; 86850; 86900; 86901; 87086; 87340; 96360; G0463; J0696; J0702; J3105; J3475; J7030; J7120

== ENCOUNTER 2018-10-28 18:36 | Inpatient (IN) | payer OTHER ==
[~2018-10-28] VITALS: Ht 162.6 cm; Wt 114.9 kg
[2018-10-28 19:21] VITALS: BP 144/67; PULSE 86; RESP 18; Ht 162.6 cm; Wt 114.9 kg
[2018-10-28] MEDS ORDERED: ACETAMINOPHEN 500 MG TAB PO STA (20:41)
[2018-10-28] MEDS ORDERED: LACTATED RINGER'S 1,000 ML IV ONE (21:00)
[2018-10-28] MEDS ORDERED: LACTATED RINGER'S 1,000 ML IV PRN (23:47)
[2018-10-29] MEDS ORDERED: LIDOCAINE 1% (MPF) 30 ML INJ INJ PRN
[2018-10-29] MEDS ORDERED: OXYTOCIN 30 UNITS/LR 500 ML IV SCH ×2
[2018-10-29] MEDS ORDERED: AMPICILLIN 2 GM/NS (PMX) 100 ML IV ONE
[2018-10-29] MEDS ORDERED: CARBOPROST 250 MCG INJ IM PRN
[2018-10-29] MEDS ORDERED: MISOPROSTOL 200 MCG TAB PR PRN
[2018-10-29] MEDS ORDERED: IBUPROFEN 600 MG TAB PO PRN
[2018-10-29] MEDS ORDERED: BUTORPHANOL 2 MG INJ IV PRN
[2018-10-29] MEDS ORDERED: OXYTOCIN 30 UNITS/LR 500 ML IV PRN
[2018-10-29] MEDS ORDERED: METHYLERGONOVINE 0.2 MG INJ IM PRN
[2018-10-29] MEDS: LACTATED RINGER'S 1,000 ML IV SCH ×4 (00:09→23:11)
[2018-10-29] MEDS: MISOPROSTOL 50 MCG CAPSULE PO SCH ×4 (03:09→18:42)
[2018-10-29] MEDS ORDERED: AMPICILLIN 1 GM/NS (PMX) 50 ML IV SCH (04:00)
--- NOTE | 2018-10-29 04:17 | TRIAGE ---
OB Triage Datetime Report Generated by CPN: 10/29/2018 04:15 Datetime: 10/29/2018 03:00 Stage of : Labor Labor Evaluation Frequency: 2-7 Monitor Mode: External Duration (sec)2399: 40-100 Quality: Moderate Pattern: Normal: <= 5 Contractions in 10 Minutes Resting Tone [place]: Relaxed Heart Rate FHR Baseline Rate: 125 Monitor Mode: External US FHR Baseline Changes: No Baseline Change Variability: Moderate 6-25 bpm Accelerations: 15X15 Decelerations: None Category: Category I Comments: points of loss of contact Datetime: 10/29/2018 02:00 Stage of : Labor Labor Evaluation Frequency: 2-8 Monitor Mode: External Duration (sec)2399: 40-100 Quality: Moderate Pattern: Normal: <= 5 Contractions in 10 Minutes Resting Tone [place]: Relaxed Heart Rate FHR Baseline Rate: 120 Monitor Mode: External US FHR Baseline Changes: No Baseline Change Variability: Moderate 6-25 bpm Accelerations: 15X15 Decelerations: None Category: Category I Pain Assessment Pain Scale: 7 Pain Presence: Intermittent Pain Type: Contraction Pain Location: Abdomen; Back; Perineum Pain Relief Measures: Comfort Measures Datetime: 10/29/2018 01:00 Stage of : Labor Labor Evaluation Frequency: 2-5 Monitor Mode: External Duration (sec)2399: 40-80 Quality: Moderate Pattern: Normal: <= 5 Contractions in 10 Minutes Resting Tone [place]: Relaxed Heart Rate FHR Baseline Rate: 125 Monitor Mode: External US FHR Baseline Changes: No Baseline Change Variability: Moderate 6-25 bpm Accelerations: 15X15 Decelerations: None Category: Category I Comments: points of loss of contact Pain Assessment Pain Scale: 7 Pain Presence: Intermittent Pain Type: Contraction Pain Location: Abdomen; Back; Perineum Pain Relief Measures: Comfort Measures Datetime: 10/29/2018 00:18 Comments: baby off monitor for US tech to get EFW Datetime: 10/29/2018 00:14 Assessment Type: Admission Assessment Vaginal Bleeding: None Maternal Assessment Level of Consciousness: Keenly Alert, Responsive DTR's/Clonus: DTRs 2+; No Clonus Headache: Denies Blurred Vision: No Respiratory Effort: Unlabored; Regular Rhythm; Equal Expansion Breath Sounds, Left: Clear and Equal Breath Sounds, Right: Clear and Equal Nausea/Vomiting: Denies RUQ Epigastric Pain: Denies Lower Extremities Edema: Bilateral Lower Extremities Degree: 1+ Upper Extremities Edema: None Degree: None Facial Edema: None Fall Risk Assessment History of Falling: (0) No Secondary Diagnosis: (0) No Ambulatory Aid: (0) Bedrest/Nurse Assist IV Therapy: (20) Yes Gait: (0) Normal/Bedrest/Immobile Mental Status: (0) Oriented to Own Ability Fall Score: 20 Fall Risk Score Definition: No Risk: No action required Pain Assessment Pain Scale: 7 Pain Presence: Intermittent Pain Type: Contraction Pain Location: Abdomen Membrane Status: Intact Datetime: 10/29/2018 00:11 Time of Arrival: 10/29/2018 00:00 EGA: 40.0 Arrived By: Ambulatory Arrived From: Home Datetime: 10/28/2018 23:59 Time of Arrival: 10/28/2018 18:21 EGA: 39.6 Arrived By: Ambulatory Arrived From: Home Chief Complaint: c/o UC's Movement: Present Contractions: Regular Time Contractions Began: 10/28/2018 10:30 Contractions: 5 minutes Rupture of Membranes: Denies Vaginal Bleeding: None Vaginal Discharge: Denies Recent Sexual Intercouse: Denies Abdominal Trauma: Not Applicable Patient Complaints: Contractions Time Provider Notified: 10/29/2018 20:20 Provider Notified: ARDALAN Initial Plan: EFM, SVE Datetime: 10/28/2018 23:56 Comments: Pt off monitor to be transferred to [facility] for admission for induction. Datetime: 10/28/2018 23:25 Vaginal Exam Dilatation (cms): 1.5 Effacement (%): 40 Station: -3 Exam By: azy k RN Membrane Status: Intact Datetime: 10/28/2018 21:30 Stage of : OB Triage Maternal Assessment Level of Consciousness: Keenly Alert, Responsive Respiratory Effort: Unlabored Breath Sounds, Left: Clear and Equal Breath Sounds, Right: Clear and Equal Heart Rate FHR Baseline Rate: 130 FHR Baseline Changes: No Baseline Change Variability: Moderate 6-25 bpm Accelerations: 15X15 Decelerations: None Category: Category I Pain Assessment Pain Scale: 7 Pain Presence: Intermittent Pain Type: Cramping; Dull; Sharp; Ache Pain Location: Abdomen Pain Goal: 2 Pain Relief Measures: Comfort Measures Pain Assessment Comments: C/O ACHE IN LOWER ABDOMEN Datetime: 10/28/2018 19:52 Pain Assessment Pain Scale: 8 Pain Presence: Intermittent Pain Type: Contraction Pain Location: Abdomen Pain Relief Measures: Comfort Measures Datetime: 10/28/2018 19:32 Stage of : OB Triage Assessment Type: Triage Maternal Assessment Level of Consciousness: Keenly Alert, Responsive DTR's/Clonus: DTRs 2+; No Clonus Headache: Denies Blurred Vision: No Respiratory Effort: Unlabored; Regular Rhythm; Equal Expansion Breath Sounds, Left: Clear and Equal Breath Sounds, Right: Clear and Equal Nausea/Vomiting: Denies RUQ Epigastric Pain: Denies Lower Extremities Edema: Bilateral Lower Extremities Degree: 1+ Upper Extremities Edema: None Degree: None Facial Edema: None Temperature Route: Oral Fall Risk Assessment History of Falling: (0) No Secondary Diagnosis: (0) No Ambulatory Aid: (0) Bedrest/Nurse Assist IV Therapy: (0) No Gait: (0) Normal/Bedrest/Immobile Mental Status: (0) Oriented to Own Ability Fall Score: 0 Fall Risk Score Definition: No Risk: No action required Labor Evaluation Frequency: x2 Monitor Mode: External Duration (sec)2399: 40-80 Quality: Moderate Pattern: Normal: <= 5 Contractions in 10 Minutes Resting Tone [place]: Relaxed Heart Rate FHR Baseline Rate: 135 Monitor Mode: External US FHR Baseline Changes: No Baseline Change Variability: Moderate 6-25 bpm Accelerations: 15X15 Decelerations: None Category: Category I Pain Assessment Pain Scale: 8 Pain Presence: Intermittent Pain Type: Contraction Pain Location: Abdomen Pain Relief Measures: Comfort Measures Datetime: 10/28/2018 19:00 Vaginal Exam Dilatation (cms): 1.5 Effacement (%): 40 Station: -3 Exam By: AO Datetime: 09/23/2018 07:40 Time of Arrival: 10/28/2018 18:21 EGA: 39.6 Arrived By: Ambulatory Arrived From: Home Chief Complaint: contractions Movement: Present Contractions: Denies/Absent Time Contractions Began: 10/28/2018 10:30 Rupture of Membranes: Denies Vaginal Discharge: Present Recent Sexual Intercouse: Denies Abdominal Trauma: Not Applicable Patient Complaints: Contractions Initial Plan: EFM Datetime: 09/23/2018 06:57 Stage of : Antepartum Labor Evaluation Frequency: X0 Monitor Mode: External Duration (sec)2399: X0 Pattern: Normal: <= 5 Contractions in 10 Minutes Resting Tone [place]: Relaxed Heart Rate FHR Baseline Rate: 135 Monitor Mode: External US Variability: Moderate 6-25 bpm Accelerations: 15X15 Decelerations: None Category: Category I Datetime: 09/23/2018 06:18 Monitor Mode: External US Datetime: 09/23/2018 06:02 Stage of : Antepartum Labor Evaluation Frequency: X1 Monitor Mode: External Duration (sec)2399: 60 Quality: Mild Pattern: Normal: <= 5 Contractions in 10 Minutes Resting Tone [place]: Relaxed Heart Rate FHR Baseline Rate: 125 Monitor Mode: External US Variability: Moderate 6-25 bpm Accelerations: 15X15 Decelerations: None Category: Category I Datetime: 09/23/2018 05:00 Stage of : Antepartum Labor Evaluation Frequency: X0 Monitor Mode: External Duration (sec)2399: X0 Pattern: Normal: <= 5 Contractions in 10 Minutes Resting Tone [place]: Relaxed Heart Rate FHR Baseline Rate: 125 Monitor Mode: External US Variability: Moderate 6-25 bpm Accelerations: 15X15 Decelerations: None Category: Category I Datetime: 09/23/2018 04:00 Stage of : Antepartum Labor Evaluation Frequency: X1 Monitor Mode: External Duration (sec)2399: 60 Pattern: Normal: <= 5 Contractions in 10 Minutes Resting Tone [place]: Relaxed Contraction Comments: MILD IRRITABILITY NOTED Heart Rate FHR Baseline Rate: 125 Monitor Mode: External US Variability: Moderate 6-25 bpm Accelerations: 15X15 Decelerations: None Category: Category I Datetime: 09/23/2018 03:23 Monitor Mode: External US Datetime: 09/23/2018 02:52 Stage of : Antepartum Labor Evaluation Frequency: X0 Monitor Mode: External Duration (sec)2399: X0 Pattern: Normal: <= 5 Contractions in 10 Minutes Resting Tone [place]: Relaxed Contraction Comments: MILD IRRITABILITY NOTED Heart Rate FHR Baseline Rate: 135 Monitor Mode: External US Variability: Moderate 6-25 bpm Accelerations: 15X15 Decelerations: None Category: Category I Datetime: 09/23/2018 01:38 Stage of : Antepartum Labor Evaluation Frequency: x0 Monitor Mode: External Duration (sec)2399: x0 Pattern: Normal: <= 5 Contractions in 10 Minutes Resting Tone [place]: Relaxed Heart Rate FHR Baseline Rate: 140 Monitor Mode: External US Variability: Moderate 6-25 bpm Accelerations: 15X15 Decelerations: None Category: Category I Datetime: 09/23/2018 01:28 Monitor Mode: External US Datetime: 09/23/2018 00:40 Stage of : Antepartum Labor Evaluation Frequency: X0 Monitor Mode: External Duration (sec)2399: X0 Pattern: Normal: <= 5 Contractions in 10 Minutes Resting Tone [place]: Relaxed Heart Rate FHR Baseline Rate: 135 Monitor Mode: External US Variability: Moderate 6-25 bpm Accelerations: 15X15 Decelerations: None Category: Category I Datetime: 09/22/2018 23:53 Monitor Mode: External US Datetime: 09/22/2018 23:51 Comments: LOSS CONTACT. PT SITTING UPRIGHT EATING SNACKS Datetime: 09/22/2018 23:40 Stage of : Antepartum Labor Evaluation Frequency: OCCASIONAL Monitor Mode: External Duration (sec)2399: 50 Quality: Mild Pattern: Normal: <= 5 Contractions in 10 Minutes Resting Tone [place]: Relaxed Contraction Comments: MILD IRRITABILITY NOTED Heart Rate FHR Baseline Rate: 135 Monitor Mode: External US Variability: Moderate 6-25 bpm Accelerations: 15X15 Decelerations: None Category: Category I Datetime: 09/22/2018 23:11 Monitor Mode: External US Datetime: 09/22/2018 22:40 Stage of : Antepartum Labor Evaluation Frequency: x6 Monitor Mode: External Duration (sec)2399: 60-70 Quality: Mild Pattern: Normal: <= 5 Contractions in 10 Minutes Resting Tone [place]: Relaxed Heart Rate FHR Baseline Rate: 135 Monitor Mode: External US Variability: Moderate 6-25 bpm Accelerations: 15X15 Decelerations: None Category: Category I Datetime: 09/22/2018 21:45 Stage of : Antepartum Labor Evaluation Frequency: X4 Monitor Mode: External Duration (sec)2399: 60-80 Quality: Mild Pattern: Normal: <= 5 Contractions in 10 Minutes Resting Tone [place]: Relaxed Heart Rate FHR Baseline Rate: 135 Monitor Mode: External US Variability: Moderate 6-25 bpm Accelerations: 15X15 Decelerations: None Category: Category I Datetime: 09/22/2018 21:13 Monitor Mode: External US Datetime: 09/22/2018 20:30 Stage of : Antepartum Labor Evaluation Frequency: X1 Monitor Mode: External Duration (sec)2399: 80 Quality: Mild Pattern: Normal: <= 5 Contractions in 10 Minutes Resting Tone [place]: Relaxed Heart Rate FHR Baseline Rate: 135 Monitor Mode: External US Variability: Moderate 6-25 bpm Accelerations: 15X15 Decelerations: None Category: Category I Datetime: 09/22/2018 19:35 Stage of : Antepartum Assessment Type: Ongoing Assessment Maternal Assessment Level of Consciousness: Fully Conscious DTR's/Clonus: DTRs 2+; No Clonus Headache: Denies Blurred Vision: No Respiratory Effort: Unlabored; Regular Rhythm; Equal Expansion Breath Sounds, Left: Clear and Equal Breath Sounds, Right: Clear and Equal Nausea/Vomiting: Denies RUQ Epigastric Pain: Denies Lower Extremities Edema: None Degree: None Upper Extremities Edema: None Degree: None Facial Edema: None Temperature Route: Oral Fall Risk Assessment History of Falling: (0) No Secondary Diagnosis: (0) No Ambulatory Aid: (0) Bedrest/Nurse Assist IV Therapy: (0) No Gait: (0) Normal/Bedrest/Immobile Mental Status: (0) Oriented to Own Ability Fall Score: 0 Fall Risk Score Definition: No Risk: No action required Pain Assessment Pain Scale: 0 Pain Presence: None/Denies Pain Type: N/A Datetime: 09/22/2018 19:32 Monitor Mode: External US Datetime: 09/22/2018 19:30 Stage of : Antepartum Labor Evaluation Frequency: X2 Monitor Mode: External Duration (sec)2399: 60-70 Quality: Mild Pattern: Normal: <= 5 Contractions in 10 Minutes Resting Tone [place]: Relaxed Heart Rate FHR Baseline Rate: 135 Monitor Mode: External US Variability: Moderate 6-25 bpm Accelerations: 15X15 Decelerations: None Category: Category I Datetime: 09/22/2018 18:38 Labor Evaluation Frequency: 2 Monitor Mode: External Duration (sec)2399: 50 Quality: Mild Resting Tone [place]: Relaxed Heart Rate FHR Baseline Rate: 135 Monitor Mode: External US FHR Baseline Changes: No Baseline Change Variability: Moderate 6-25 bpm Accelerations: 15X15 Decelerations: None Category: Category I Datetime: 09/22/2018 17:28 Labor Evaluation Frequency: occasional Monitor Mode: External Duration (sec)2399: 40 Quality: Mild Resting Tone [place]: Relaxed Heart Rate FHR Baseline Rate: 130 Monitor Mode: External US FHR Baseline Changes: No Baseline Change Variability: Moderate 6-25 bpm Accelerations: 15X15 Decelerations: None Category: Category I Datetime: 09/22/2018 16:36 Labor Evaluation Frequency: 1 Monitor Mode: External Duration (sec)2399: 40 Quality: Mild Resting Tone [place]: Relaxed Heart Rate FHR Baseline Rate: 140 Monitor Mode: External US FHR Baseline Changes: No Baseline Change Variability: Moderate 6-25 bpm Accelerations: 15X15 Decelerations: None Category: Category I Pain Presence: None/Denies Datetime: 09/22/2018 15:48 Labor Evaluation Frequency: 0 Monitor Mode: External Resting Tone [place]: Relaxed Heart Rate FHR Baseline Rate: 140 Monitor Mode: External US FHR Baseline Changes: No Baseline Change Variability: Moderate 6-25 bpm Accelerations: 15X15 Decelerations: Variable Category: Category I Datetime: 09/22/2018 14:44 Labor Evaluation Frequency: 0 Monitor Mode: External Resting Tone [place]: Relaxed Heart Rate FHR Baseline Rate: 140 FHR Baseline Changes: No Baseline Change Variability: Moderate 6-25 bpm Accelerations: 15X15 Decelerations: None Category: Category I Datetime: 09/22/2018 13:41 Labor Evaluation Frequency: 0 Monitor Mode: External Resting Tone [place]: Relaxed Heart Rate FHR Baseline Rate: 130 Monitor Mode: External US FHR Baseline Changes: No Baseline Change Variability: Moderate 6-25 bpm Accelerations: 15X15 Decelerations: None Category: Category I Datetime: 09/22/2018 11:41 Labor Evaluation Frequency: 0 Monitor Mode: External Resting Tone [place]: Relaxed Heart Rate FHR Baseline Rate: 130 Monitor Mode: External US FHR Baseline Changes: No Baseline Change Variability: Moderate 6-25 bpm Accelerations: 15X15 Decelerations: None Category: Category I Pain Presence: None/Denies Datetime: 09/22/2018 11:11 Labor Evaluation Frequency: 0 Monitor Mode: External Resting Tone [place]: Relaxed Heart Rate FHR Baseline Rate: 130 Monitor Mode: External US FHR Baseline Changes: No Baseline Change Variability: Moderate 6-25 bpm Accelerations: 15X15 Decelerations: None Category: Category I Datetime: 09/22/2018 10:39 Labor Evaluation Frequency: 0 Monitor Mode: External Resting Tone [place]: Relaxed Heart Rate FHR Baseline Rate: 130 Monitor Mode: External US FHR Baseline Changes: No Baseline Change Variability: Moderate 6-25 bpm Accelerations: 15X15 Decelerations: None Category: Category I Datetime: 09/22/2018 09:02 Labor Evaluation Frequency: 0 Monitor Mode: External Resting Tone [place]: Relaxed Heart Rate FHR Baseline Rate: 125 Monitor Mode: External US FHR Baseline Changes: No Baseline Change Variability: Moderate 6-25 bpm Accelerations: 15X15 Decelerations: None Category: Category I Datetime: 09/22/2018 08:14 Assessment Type: Ongoing Assessment Maternal Assessment Level of Consciousness: Fully Conscious DTR's/Clonus: DTRs 2+; No Clonus Headache: Denies Blurred Vision: No Respiratory Effort: Unlabored; Regular Rhythm; Equal Expansion Breath Sounds, Left: Clear and Equal Breath Sounds, Right: Clear and Equal Nausea/Vomiting: Denies RUQ Epigastric Pain: Denies Facial Edema: None Fall Risk Assessment History of Falling: (0) No Secondary Diagnosis: (0) No Ambulatory Aid: (0) Bedrest/Nurse Assist IV Therapy: (20) Yes Gait: (0) Normal/Bedrest/Immobile Mental Status: (0) Oriented to Own Ability Fall Score: 20 Fall Risk Score Definition: No Risk: No action required Datetime: 09/22/2018 08:09 Pain Presence: None/Denies Datetime: 09/22/2018 08:08 Labor Evaluation Frequency: 1 Monitor Mode: External Duration (sec)2399: 60 Quality: Mild Resting Tone [place]: Relaxed Heart Rate FHR Baseline Rate: 120 Monitor Mode: External US FHR Baseline Changes: No Baseline Change Variability: Moderate 6-25 bpm Accelerations: 15X15 Decelerations: None Category: Category I Datetime: 09/22/2018 07:00 Stage of : Antepartum Labor Evaluation Frequency: x2 Monitor Mode: External Duration (sec)2399: 40-80 Quality: Mild Pattern: Normal: <= 5 Contractions in 10 Minutes Resting Tone [place]: Relaxed Heart Rate FHR Baseline Rate: 120 Monitor Mode: External US FHR Baseline Changes: No Baseline Change Variability: Moderate 6-25 bpm Accelerations: 15X15 Decelerations: None Category: Category I Datetime: 09/22/2018 06:45 Stage of : Antepartum Datetime: 09/22/2018 06:00 Stage of : Antepartum Labor Evaluation Frequency: x2 Monitor Mode: External Duration (sec)2399: 70-90 Quality: Mild Pattern: Normal: <= 5 Contractions in 10 Minutes Resting Tone [place]: Relaxed Heart Rate FHR Baseline Rate: 120 Monitor Mode: External US FHR Baseline Changes: No Baseline Change Variability: Moderate 6-25 bpm Accelerations: 15X15 Decelerations: None Category: Category I Datetime: 09/22/2018 05:00 Stage of : Antepartum Labor Evaluation Frequency: x3 Monitor Mode: External Duration (sec)2399: 70-100 Quality: Mild Pattern: Normal: <= 5 Contractions in 10 Minutes Resting Tone [place]: Relaxed Heart Rate FHR Baseline Rate: 120 Monitor Mode: External US Variability: Moderate 6-25 bpm Accelerations: 15X15 Decelerations: None Datetime: 09/22/2018 04:45 Stage of : Antepartum Datetime: 09/22/2018 04:10 Stage of : Antepartum Maternal Assessment Level of Consciousness: Fully Conscious DTR's/Clonus: DTRs 2+; No Clonus Headache: Denies Blurred Vision: No Breath Sounds, Left: Clear and Equal Breath Sounds, Right: Clear and Equal Nausea/Vomiting: Denies RUQ Epigastric Pain: Denies Lower Extremities Edema: Bilateral Lower Extremities Degree: 1+ Upper Extremities Edema: None Degree: None Facial Edema: None Temperature Route: Oral Datetime: 09/22/2018 04:00 Stage of : Antepartum Labor Evaluation Frequency: x4 Monitor Mode: External Duration (sec)2399: 50-120 Quality: Mild Pattern: Normal: <= 5 Contractions in 10 Minutes Resting Tone [place]: Relaxed Heart Rate FHR Baseline Rate: 125 Monitor Mode: External US FHR Baseline Changes: No Baseline Change Variability: Moderate 6-25 bpm Accelerations: 15X15 Decelerations: None Category: Category I Datetime: 09/22/2018 03:45 Stage of : Antepartum Datetime: 09/22/2018 03:00 Stage of : Antepartum Labor Evaluation Frequency: x6 Monitor Mode: External Duration (sec)2399: 50-130 Quality: Mild Pattern: Normal: <= 5 Contractions in 10 Minutes Resting Tone [place]: Relaxed Heart Rate FHR Baseline Rate: 125 Monitor Mode: External US FHR Baseline Changes: No Baseline Change Variability: Moderate 6-25 bpm Accelerations: 15X15 Decelerations: Variable Category: Category II Datetime: 09/22/2018 02:45 Stage of : Antepartum Maternal Assessment Level of Consciousness: Fully Conscious DTR's/Clonus: DTRs 2+; No Clonus Headache: Denies Blurred Vision: No Breath Sounds, Left: Clear and Equal Breath Sounds, Right: Clear and Equal Nausea/Vomiting: Denies RUQ Epigastric Pain: Denies Lower Extremities Edema: Bilateral Lower Extremities Degree: 1+ Upper Extremities Edema: None Degree: None Facial Edema: None Datetime: 09/22/2018 02:00 Stage of : Antepartum Labor Evaluation Frequency: x4 Monitor Mode: External Duration (sec)2399: 70-90 Quality: Mild Pattern: Normal: <= 5 Contractions in 10 Minutes Resting Tone [place]: Relaxed Heart Rate FHR Baseline Rate: 125 Monitor Mode: External US Variability: Moderate 6-25 bpm Accelerations: 15X15 Decelerations: None Category: Category I Datetime: 09/22/2018 01:45 Stage of : Antepartum Datetime: 09/22/2018 01:00 Stage of : Antepartum Labor Evaluation Frequency: x3 Monitor Mode: External Duration (sec)2399: 50-110 Quality: Mild Pattern: Normal: <= 5 Contractions in 10 Minutes Resting Tone [place]: Relaxed Heart Rate FHR Baseline Rate: 130 Monitor Mode: External US FHR Baseline Changes: No Baseline Change Variability: Moderate 6-25 bpm Accelerations: 15X15 Decelerations: None Datetime: 09/22/2018 00:03 Stage of : Antepartum Temperature Route: Oral Datetime: 09/22/2018 00:00 Stage of : Antepartum Labor Evaluation Frequency: 2-9 Monitor Mode: External Duration (sec)2399: 40-100 Quality: Mild Pattern: Normal: <= 5 Contractions in 10 Minutes Resting Tone [place]: Relaxed Heart Rate FHR Baseline Rate: 130 Monitor Mode: External US Variability: Moderate 6-25 bpm Accelerations: 15X15 Decelerations: None Datetime: 09/21/2018 23:45 Stage of : Antepartum Datetime: 09/21/2018 23:36 Stage of : Antepartum Datetime: 09/21/2018 23:03 Maternal Assessment Level of Consciousness: Fully Conscious DTR's/Clonus: DTRs 2+; No Clonus Headache: Denies Blurred Vision: No Breath Sounds, Left: Clear and Equal Breath Sounds, Right: Clear and Equal Nausea/Vomiting: Denies RUQ Epigastric Pain: Denies Lower Extremities Edema: Bilateral Lower Extremities Degree: 1+ Upper Extremities Edema: None Degree: None Facial Edema: None Vaginal Exam Dilatation (cms): 1.0 Effacement (%): 50 Station: -3 Exam By: SAMUEL Blackmon Vaginal Bleeding: None Cervix, Position: Posterior Datetime: 09/21/2018 23:00 Stage of : Antepartum Labor Evaluation Frequency: 1-9.5 Monitor Mode: External Duration (sec)2399: 40-110 Quality: Mild Pattern: Normal: <= 5 Contractions in 10 Minutes Resting Tone [place]: Relaxed Heart Rate FHR Baseline Rate: 135 Monitor Mode: External US Variability: Moderate 6-25 bpm Accelerations: 15X15 Decelerations: None Datetime: 09/21/2018 22:45 Stage of : Antepartum Datetime: 09/21/2018 22:00 Stage of : Antepartum Labor Evaluation Frequency: Irritability/Irregular Monitor Mode: External Duration (sec)2399: 20-60 Quality: Mild Pattern: Normal: <= 5 Contractions in 10 Minutes Resting Tone [place]: Relaxed Heart Rate FHR Baseline Rate: 140 Monitor Mode: External US Variability: Moderate 6-25 bpm Accelerations: 15X15 Decelerations: None Datetime: 09/21/2018 21:38 Stage of : Antepartum Maternal Assessment Level of Consciousness: Fully Conscious DTR's/Clonus: DTRs 2+; No Clonus Headache: Denies Blurred Vision: No Breath Sounds, Left: Clear and Equal Breath Sounds, Right: Clear and Equal Nausea/Vomiting: Denies RUQ Epigastric Pain: Denies Lower Extremities Edema: Bilateral Lower Extremities Degree: 1+ Upper Extremities Edema: None Degree: None Facial Edema: None Pain Assessment Pain Scale: 5 Pain Presence: Intermittent Pain Type: Cramping Pain Location: Abdomen Pain Relief Measures: Comfort Measures Pain Assessment Comments: Magnesium Sulfate started Datetime: 09/21/2018 21:00 Stage of : Antepartum Labor Evaluation Frequency: Irritability/Irregular Monitor Mode: External Duration (sec)2399: 20-90 Quality: Mild Pattern: Normal: <= 5 Contractions in 10 Minutes Resting Tone [place]: Relaxed Heart Rate FHR Baseline Rate: 145 Monitor Mode: External US FHR Baseline Changes: No Baseline Change Variability: Moderate 6-25 bpm Accelerations: 15X15 Decelerations: None Datetime: 09/21/2018 20:42 Stage of : Antepartum Datetime: 09/21/2018 20:22 Stage of : Antepartum Assessment Type: Ongoing Assessment Maternal Assessment Level of Consciousness: Fully Conscious DTR's/Clonus: DTRs 2+; No Clonus Headache: Denies Blurred Vision: No Respiratory Effort: Unlabored; Regular Rhythm; Equal Expansion Breath Sounds, Left: Clear and Equal Breath Sounds, Right: Clear and Equal Nausea/Vomiting: Denies RUQ Epigastric Pain: Denies Lower Extremities Edema: Bilateral Lower Extremities Degree: 1+ Upper Extremities Edema: None Degree: None Facial Edema: None Temperature Route: Oral Fall Risk Assessment History of Falling: (0) No Secondary Diagnosis: (0) No Ambulatory Aid: (0) Bedrest/Nurse Assist IV Therapy: (0) No Gait: (0) Normal/Bedrest/Immobile Mental Status: (0) Oriented to Own Ability Fall Score: 0 Fall Risk Score Definition: No Risk: No action required Pain Assessment Pain Scale: 5 Pain Presence: Intermittent Pain Type: Cramping Pain Location: Abdomen Pain Relief Measures: Comfort Measures Datetime: 09/21/2018 20:00 Stage of : Antepartum Labor Evaluation Frequency: Irritability/Irregular Monitor Mode: External Duration (sec)2399: 20-90 Quality: Mild Pattern: Normal: <= 5 Contractions in 10 Minutes Resting Tone [place]: Relaxed Heart Rate FHR Baseline Rate: 145 Monitor Mode: External US Variability: Moderate 6-25 bpm Accelerations: 15X15 Decelerations: None Category: Category I Datetime: 09/21/2018 18:59 Labor Evaluation Frequency: x3 Monitor Mode: External Duration (sec)2399: 60-70 Quality: Mild Pattern: Normal: <= 5 Contractions in 10 Minutes Resting Tone [place]: Relaxed Heart Rate FHR Baseline Rate: 140 Monitor Mode: External US FHR Baseline Changes: No Baseline Change Variability: Moderate 6-25 bpm Accelerations: 15X15 Decelerations: None Datetime: 09/21/2018 18:00 Stage of : Antepartum Labor Evaluation Frequency: x2, irritability Monitor Mode: External Duration (sec)2399: 40-60 Quality: Mild Pattern: Normal: <= 5 Contractions in 10 Minutes Resting Tone [place]: Relaxed Heart Rate FHR Baseline Rate: 140 Monitor Mode: External US FHR Baseline Changes: No Baseline Change Variability: Moderate 6-25 bpm Accelerations: 15X15 Decelerations: Variable Pain Assessment Pain Scale: 0 Pain Presence: None/Denies Pain Type: N/A Datetime: 09/21/2018 17:00 Labor Evaluation Frequency: x1 Monitor Mode: External Duration (sec)2399: 40 Quality: Mild Pattern: Normal: <= 5 Contractions in 10 Minutes Resting Tone [place]: Relaxed Heart Rate FHR Baseline Rate: 140 Monitor Mode: External US FHR Baseline Changes: No Baseline Change Variability: Moderate 6-25 bpm Accelerations: 15X15 Decelerations: None Datetime: 09/21/2018 16:00 Stage of : Antepartum Labor Evaluation Frequency: x1 Monitor Mode: External Duration (sec)2399: 50 Quality: Mild Pattern: Normal: <= 5 Contractions in 10 Minutes Resting Tone [place]: Relaxed Heart Rate FHR Baseline Rate: 140 Monitor Mode: External US FHR Baseline Changes: No Baseline Change Variability: Moderate 6-25 bpm Accelerations: 15X15 Decelerations: None Pain Assessment Pain Scale: 0 Pain Presence: None/Denies Pain Type: N/A Datetime: 09/21/2018 15:00 Labor Evaluation Frequency: x3 Monitor Mode: External Duration (sec)2399: 40-80 Quality: Mild Pattern: Normal: <= 5 Contractions in 10 Minutes Resting Tone [place]: Relaxed Heart Rate FHR Baseline Rate: 145 Monitor Mode: External US FHR Baseline Changes: No Baseline Change Variability: Moderate 6-25 bpm Accelerations: 15X15 Decelerations: Variable Datetime: 09/21/2018 14:00 Stage of : Antepartum Labor Evaluation Frequency: irritability Monitor Mode: External Quality: Mild Pattern: Normal: <= 5 Contractions in 10 Minutes Resting Tone [place]: Relaxed Heart Rate FHR Baseline Rate: 140 FHR Baseline Changes: No Baseline Change Variability: Moderate 6-25 bpm Accelerations: 10X10 Decelerations: None Pain Assessment Pain Scale: 0 Pain Presence: None/Denies Pain Type: N/A Datetime: 09/21/2018 13:00 Labor Evaluation Frequency: irritability Monitor Mode: External Quality: Mild Pattern: Normal: <= 5 Contractions in 10 Minutes Resting Tone [place]: Relaxed Contraction Comments: x2 per patient. Resolved with procardia adminstration. Heart Rate FHR Baseline Rate: 145 Monitor Mode: External US FHR Baseline Changes: No Baseline Change Variability: Moderate 6-25 bpm Accelerations: 15X15 Decelerations: None Datetime: 09/21/2018 12:00 Stage of : Antepartum Monitor Mode: External Quality: Mild Pattern: Normal: <= 5 Contractions in 10 Minutes Resting Tone [place]: Relaxed Contraction Comments: x3 per patient. Heart Rate FHR Baseline Rate: 130 Monitor Mode: External US FHR Baseline Changes: No Baseline Change Variability: Moderate 6-25 bpm Accelerations: 15X15 Decelerations: None Pain Assessment Pain Scale: 6 Pain Presence: Intermittent Pain Type: Contraction Pain Location: Abdomen Pain Relief Measures: Comfort Measures Datetime: 09/21/2018 11:00 Labor Evaluation Frequency: 0 Monitor Mode: External Quality: Mild Pattern: Normal: <= 5 Contractions in 10 Minutes Resting Tone [place]: Relaxed Heart Rate FHR Baseline Rate: 125 Monitor Mode: External US FHR Baseline Changes: No Baseline Change Variability: Moderate 6-25 bpm Accelerations: 15X15 Decelerations: None Datetime: 09/21/2018 10:00 Stage of : Antepartum Pain Assessment Pain Scale: 8 Pain Presence: Intermittent Pain Type: Contraction Pain Location: Back Pain Relief Measures: Comfort Measures Datetime: 09/21/2018 09:59 Labor Evaluation Frequency: x3 Monitor Mode: External Duration (sec)2399: 60 Quality: Mild Pattern: Normal: <= 5 Contractions in 10 Minutes Resting Tone [place]: Relaxed Heart Rate FHR Baseline Rate: 130 Monitor Mode: External US FHR Baseline Changes: No Baseline Change Variability: Moderate 6-25 bpm Accelerations: 15X15 Decelerations: None Datetime: 09/21/2018 08:59 Labor Evaluation Frequency: irritability Monitor Mode: External Quality: Mild Pattern: Normal: <= 5 Contractions in 10 Minutes Resting Tone [place]: Relaxed Heart Rate FHR Baseline Rate: 130 Monitor Mode: External US FHR Baseline Changes: No Baseline Change Variability: Moderate 6-25 bpm Accelerations: 10X10 Decelerations: None Datetime: 09/21/2018 07:59 Labor Evaluation Frequency: x1, irritability Monitor Mode: External Duration (sec)2399: 60 Quality: Mild Pattern: Normal: <= 5 Contractions in 10 Minutes Resting Tone [place]: Relaxed Heart Rate FHR Baseline Rate: 125 Monitor Mode: External US FHR Baseline Changes: No Baseline Change Variability: Moderate 6-25 bpm Accelerations: 15X15 Decelerations: None Datetime: 09/21/2018 07:30 Stage of : Antepartum Assessment Type: Ongoing Assessment Maternal Assessment Level of Consciousness: Fully Conscious DTR's/Clonus: DTRs 2+; No Clonus Headache: Denies Blurred Vision: No Respiratory Effort: Unlabored; Regular Rhythm; Equal Expansion Breath Sounds, Left: Clear and Equal Breath Sounds, Right: Clear and Equal Nausea/Vomiting: Denies RUQ Epigastric Pain: Denies Lower Extremities Edema: None Degree: None Upper Extremities Edema: None Degree: None Facial Edema: None Fall Risk Assessment History of Falling: (0) No Secondary Diagnosis: (0) No Ambulatory Aid: (0) Bedrest/Nurse Assist IV Therapy: (20) Yes Gait: (0) Normal/Bedrest/Immobile Mental Status: (0) Oriented to Own Ability Fall Score: 20 Fall Risk Score Definition: No Risk: No action required Pain Assessment Pain Scale: 0 Pain Presence: None/Denies Datetime: 09/21/2018 06:18 Stage of : Antepartum Labor Evaluation Frequency: 0 Monitor Mode: External Duration (sec)2399: 0 Pattern: Normal: <= 5 Contractions in 10 Minutes Resting Tone [place]: Relaxed Heart Rate FHR Baseline Rate: 130 Monitor Mode: External US Variability: Moderate 6-25 bpm Accelerations: 15X15 Decelerations: None Datetime: 09/21/2018 05:18 Stage of : Antepartum Temperature Route: Oral Labor Evaluation Frequency: x1 irregular Monitor Mode: External Duration (sec)2399: 60 Quality: Mild Pattern: Normal: <= 5 Contractions in 10 Minutes Resting Tone [place]: Relaxed Heart Rate FHR Baseline Rate: 135 Monitor Mode: External US Variability: Moderate 6-25 bpm Accelerations: 15X15 Decelerations: None Datetime: 09/21/2018 04:50 Stage of : Antepartum Maternal Assessment Level of Consciousness: Fully Conscious Labor Evaluation Frequency: x1 irregular Monitor Mode: External Duration (sec)2399: 60 Quality: Mild Pattern: Normal: <= 5 Contractions in 10 Minutes Resting Tone [place]: Relaxed Heart Rate FHR Baseline Rate: 135 Monitor Mode: External US Variability: Moderate 6-25 bpm Accelerations: 15X15 Decelerations: None Pain Assessment Pain Scale: 0 Pain Goal: 0 Datetime: 09/21/2018 03:50 Stage of : Antepartum Maternal Assessment Level of Consciousness: Fully Conscious Labor Evaluation Frequency: x2 irregular Monitor Mode: External Duration (sec)2399: 30-60 Quality: Mild Pattern: Normal: <= 5 Contractions in 10 Minutes Resting Tone [place]: Relaxed Heart Rate FHR Baseline Rate: 135 Monitor Mode: External US Variability: Moderate 6-25 bpm Accelerations: 15X15 Decelerations: None Pain Assessment Pain Scale: 0 Pain Goal: 0 Datetime: 09/21/2018 02:50 Stage of : Antepartum Maternal Assessment Level of Consciousness: Fully Conscious Labor Evaluation Frequency: irreg Monitor Mode: External Duration (sec)2399: 30-60 Quality: Mild Pattern: Normal: <= 5 Contractions in 10 Minutes Resting Tone [place]: Relaxed Heart Rate FHR Baseline Rate: 135 Monitor Mode: External US Variability: Moderate 6-25 bpm Accelerations: 15X15 Decelerations: None Pain Assessment Pain Scale: 0 Pain Goal: 0 Datetime: 09/21/2018 02:49 Stage of : Antepartum Datetime: 09/21/2018 01:50 Stage of : Antepartum Maternal Assessment Level of Consciousness: Fully Conscious Labor Evaluation Frequency: irreg Monitor Mode: External Duration (sec)2399: 30-60 Quality: Mild Pattern: Normal: <= 5 Contractions in 10 Minutes Resting Tone [place]: Relaxed Heart Rate FHR Baseline Rate: 135 Monitor Mode: External US Variability: Moderate 6-25 bpm Accelerations: 15X15 Decelerations: None Pain Assessment Pain Scale: 0 Pain Goal: 0 Datetime: 09/21/2018 00:50 Stage of : Antepartum Maternal Assessment Level of Consciousness: Fully Conscious Labor Evaluation Frequency: irreg Monitor Mode: External Duration (sec)2399: 30-70 Quality: Mild Pattern: Normal: <= 5 Contractions in 10 Minutes Resting Tone [place]: Relaxed Heart Rate FHR Baseline Rate: 150 Monitor Mode: External US Variability: Moderate 6-25 bpm Accelerations: 15X15 Decelerations: None Pain Assessment Pain Scale: 0 Pain Goal: 0 Datetime: 09/20/2018 23:52 Stage of : Antepartum Maternal Assessment Level of Consciousness: Fully Conscious Temperature Route: Oral Labor Evaluation Frequency: irreg Monitor Mode: External Duration (sec)2399: 30-80 Quality: Mild Pattern: Normal: <= 5 Contractions in 10 Minutes Resting Tone [place]: Relaxed Heart Rate FHR Baseline Rate: 150 Monitor Mode: External US Variability: Moderate 6-25 bpm Accelerations: 15X15 Decelerations: None Pain Assessment Pain Scale: 0 Pain Goal: 0 Datetime: 09/20/2018 23:00 Stage of : Antepartum Maternal Assessment Level of Consciousness: Fully Conscious Labor Evaluation Frequency: irreg Monitor Mode: External Duration (sec)2399: 30-80 Quality: Mild Pattern: Normal: <= 5 Contractions in 10 Minutes Resting Tone [place]: Relaxed Heart Rate FHR Baseline Rate: 150 Monitor Mode: External US Variability: Moderate 6-25 bpm Accelerations: 15X15 Decelerations: None Pain Assessment Pain Scale: 0 Pain Goal: 0 Datetime: 09/20/2018 22:50 Stage of : Antepartum Datetime: 09/20/2018 22:00 Stage of : Antepartum Maternal Assessment Level of Consciousness: Fully Conscious Labor Evaluation Frequency: x1 Monitor Mode: External Duration (sec)2399: 70 Quality: Mild Pattern: Normal: <= 5 Contractions in 10 Minutes Resting Tone [place]: Relaxed Heart Rate FHR Baseline Rate: 140 Monitor Mode: External US Variability: Moderate 6-25 bpm Accelerations: 15X15 Decelerations: None Pain Assessment Pain Scale: 0 Pain Goal: 0 Datetime: 09/20/2018 21:45 Stage of : Antepartum Comments: US at bedside for scan, SD Ratio, position. Difficulty tracing fetus on external monitor due to increased [place] and movement. (Annotations : Data stored by [facility] on behalf of user) Datetime: 09/20/2018 21:00 Stage of : Antepartum Maternal Assessment Level of Consciousness: Fully Conscious Labor Evaluation Frequency: irreg Monitor Mode: External Duration (sec)2399: 30-80 Quality: Mild Pattern: Normal: <= 5 Contractions in 10 Minutes Resting Tone [place]: Relaxed Heart Rate FHR Baseline Rate: 150 Monitor Mode: External US Variability: Moderate 6-25 bpm Accelerations: 15X15 Decelerations: None Pain Assessment Pain Scale: 0 Pain Goal: 0 Datetime: 09/20/2018 20:25 Assessment Type: Ongoing Assessment Maternal Assessment Level of Consciousness: Fully Conscious DTR's/Clonus: DTRs 2+; No Clonus Headache: Denies Blurred Vision: No Respiratory Effort: Unlabored; Regular Rhythm; Equal Expansion Breath Sounds, Left: Clear and Equal Breath Sounds, Right: Clear and Equal Nausea/Vomiting: Denies RUQ Epigastric Pain: Denies Facial Edema: None Temperature Route: Oral Fall Risk Assessment History of Falling: (0) No Secondary Diagnosis: (0) No Ambulatory Aid: (0) Bedrest/Nurse Assist Gait: (0) Normal/Bedrest/Immobile Mental Status: (0) Oriented to Own Ability Datetime: 09/20/2018 20:00 Stage of : Antepartum Labor Evaluation Frequency: irreg Monitor Mode: External Duration (sec)2399: 30-80 Quality: Mild Pattern: Normal: <= 5 Contractions in 10 Minutes Resting Tone [place]: Relaxed Heart Rate FHR Baseline Rate: 145 Monitor Mode: External US Variability: Moderate 6-25 bpm Accelerations: 15X15 Decelerations: None Category: Category I Datetime: 09/20/2018 19:00 Labor Evaluation Frequency: irreg Monitor Mode: External Duration (sec)2399: 30-80 Quality: Mild Pattern: Normal: <= 5 Contractions in 10 Minutes Resting Tone [place]: Relaxed Heart Rate FHR Baseline Rate: 145 Monitor Mode: External US Variability: Moderate 6-25 bpm Accelerations: 15X15 Decelerations: None Category: Category I Datetime: 09/20/2018 18:00 Labor Evaluation Frequency: irreg Monitor Mode: External Duration (sec)2399: 30-50 Quality: Mild Pattern: Normal: <= 5 Contractions in 10 Minutes Resting Tone [place]: Relaxed Heart Rate FHR Baseline Rate: 140 Monitor Mode: External US Variability: Moderate 6-25 bpm Accelerations: 10X10 Comments: loss of contact Pain Assessment Pain Scale: 0 Pain Presence: None/Denies Pain Type: N/A Datetime: 09/20/2018 17:08 Comments: loss of contact, sitting up for dinner Datetime: 09/20/2018 17:00 Labor Evaluation Frequency: irreg Monitor Mode: External Duration (sec)2399: 30-80 Quality: Mild Pattern: Normal: <= 5 Contractions in 10 Minutes Resting Tone [place]: Relaxed Heart Rate FHR Baseline Rate: 140 Monitor Mode: External US Variability: Moderate 6-25 bpm Accelerations: 10X10 Comments: loss of contact Datetime: 09/20/2018 16:00 Labor Evaluation Frequency: X1 Monitor Mode: External Duration (sec)2399: 60 Quality: Mild Pattern: Normal: <= 5 Contractions in 10 Minutes Resting Tone [place]: Relaxed Heart Rate FHR Baseline Rate: 140 Monitor Mode: External US Variability: Moderate 6-25 bpm Accelerations: 10X10 Category: Category I Comments: LOSS OF CONTACT Datetime: 09/20/2018 15:00 Labor Evaluation Frequency: X1 Monitor Mode: External Duration (sec)2399: 120 Quality: Mild Pattern: Normal: <= 5 Contractions in 10 Minutes Resting Tone [place]: Relaxed Heart Rate FHR Baseline Rate: 140 Monitor Mode: External US Variability: Moderate 6-25 bpm Accelerations: 15X15 Decelerations: Prolonged Category: Category II Comments: PROLONGED DECEL NOTED AT 1413 FROM BASELINE 130 DOWN TO 105 BPM FOR 40 SECONDS WITH ONSET AND RECOVERY LASTING 130 SECONDS Datetime: 09/20/2018 14:16 Comments: DR MCGUIRE IS IN THE OR WITH ANOTHER PT, WILL NOTIFY HER OF DECELS WHEN SHE BECOMES AVAILA BLE Datetime: 09/20/2018 14:00 Labor Evaluation Frequency: X1 Monitor Mode: External Duration (sec)2399: 60 Quality: Mild Pattern: Normal: <= 5 Contractions in 10 Minutes Resting Tone [place]: Relaxed Heart Rate FHR Baseline Rate: 130 Monitor Mode: External US Variability: Moderate 6-25 bpm Accelerations: 15X15 Decelerations: Variable Category: Category II Datetime: 09/20/2018 13:00 Labor Evaluation Frequency: x4 Monitor Mode: External Duration (sec)2399: 70-80 Quality: Mild Pattern: Normal: <= 5 Contractions in 10 Minutes Resting Tone [place]: Relaxed Heart Rate FHR Baseline Rate: 125 Monitor Mode: External US Variability: Moderate 6-25 bpm Accelerations: 10X10 Decelerations: None Category: Category II Comments: loss of contact while sitting up for lunch Datetime: 09/20/2018 12:00 Labor Evaluation Frequency: x3 Monitor Mode: External Duration (sec)2399: 40-100 Quality: Mild Pattern: Normal: <= 5 Contractions in 10 Minutes Resting Tone [place]: Relaxed Heart Rate FHR Baseline Rate: 130 Monitor Mode: External US Variability: Moderate 6-25 bpm Accelerations: 15X15 Decelerations: None Category: Category I Pain Assessment Pain Scale: 0 Pain Presence: None/Denies Pain Type: N/A Datetime: 09/20/2018 11:00 Labor Evaluation Frequency: X2 Monitor Mode: External Duration (sec)2399: 90-100 Quality: Mild Pattern: Normal: <= 5 Contractions in 10 Minutes Resting Tone [place]: Relaxed Heart Rate FHR Baseline Rate: 130 Monitor Mode: External US Variability: Moderate 6-25 bpm Accelerations: 15X15 Decelerations: Late Category: Category II Datetime: 09/20/2018 10:16 Comments: DR REICHE REVIEWED EFM TRACING Datetime: 09/20/2018 10:00 Labor Evaluation Frequency: X2 Monitor Mode: External Duration (sec)2399: 90-100 Quality: Mild Pattern: Normal: <= 5 Contractions in 10 Minutes Resting Tone [place]: Relaxed Heart Rate FHR Baseline Rate: 130 Monitor Mode: External US Variability: Moderate 6-25 bpm Accelerations: 15X15 Decelerations: Variable Category: Category II Datetime: 09/20/2018 09:00 Labor Evaluation Frequency: X2 Monitor Mode: External Duration (sec)2399: 40-60 Quality: Mild Pattern: Normal: <= 5 Contractions in 10 Minutes Resting Tone [place]: Relaxed Heart Rate FHR Baseline Rate: 130 Monitor Mode: External US Variability: Moderate 6-25 bpm Accelerations: 15X15 Decelerations: None Category: Category I Datetime: 09/20/2018 08:00 Labor Evaluation Frequency: 0 Monitor Mode: External Quality: Mild Pattern: Normal: <= 5 Contractions in 10 Minutes Resting Tone [place]: Relaxed Contraction Comments: NO UCS TRACING, TOCO ADJUSTED MULTIPLE TIMES Heart Rate FHR Baseline Rate: 130 Monitor Mode: External US Variability: Moderate 6-25 bpm Accelerations: 15X15 Decelerations: Prolonged Category: Category II Comments: DECEL NOTED AT 0728 FR BASELINE 130 DOWN TO 90 BPM FOR 60 SEC WITH ONSET AND RETURN TO [facility] LASTING [address] MCGUIRE Datetime: 09/20/2018 07:45 Assessment Type: Ongoing Assessment Maternal Assessment Level of Consciousness: Fully Conscious DTR's/Clonus: DTRs 2+; No Clonus Headache: Denies Blurred Vision: No Respiratory Effort: Unlabored; Regular Rhythm; Equal Expansion Breath Sounds, Left: Clear and Equal Breath Sounds, Right: Clear and Equal Nausea/Vomiting: Denies RUQ Epigastric Pain: Denies Facial Edema: None Fall Risk Assessment History of Falling: (0) No Secondary Diagnosis: (0) No Ambulatory Aid: (0) Bedrest/Nurse Assist Gait: (0) Normal/Bedrest/Immobile Mental Status: (0) Oriented to Own Ability Datetime: 09/20/2018 06:20 Stage of : Antepartum Maternal Assessment Level of Consciousness: Fully Conscious Labor Evaluation Frequency: 0 Monitor Mode: External Duration (sec)2399: 0 Resting Tone [place]: Relaxed Heart Rate FHR Baseline Rate: 135 Monitor Mode: External US FHR Baseline Changes: No Baseline Change Variability: Moderate 6-25 bpm Accelerations: Prolonged Decelerations: Variable Pain Assessment Pain Scale: 0 Pain Goal: 0 Datetime: 09/20/2018 06:05 Monitor Mode: External US FHR Baseline Changes: Return to Previous Baseline Variability: Moderate 6-25 bpm Decelerations: Prolonged Category: Category II Comments: Prolonged ecel for 120 sec's with return to baseline. Pt was on back with head in low fo wlers position. Awoke pt and explained that she needs to lie on her rt or lt side either tilted or l ateral. Datetime: 09/20/2018 05:24 Stage of : Antepartum Maternal Assessment Level of Consciousness: Fully Conscious Temperature Route: Oral Labor Evaluation Frequency: 0 Monitor Mode: External Duration (sec)2399: 0 Resting Tone [place]: Relaxed Heart Rate FHR Baseline Rate: 130 Monitor Mode: External US FHR Baseline Changes: No Baseline Change Variability: Moderate 6-25 bpm Accelerations: Prolonged Decelerations: Variable Pain Assessment Pain Scale: 0 Pain Goal: 0 Datetime: 09/20/2018 04:20 Stage of : Antepartum Maternal Assessment Level of Consciousness: Fully Conscious Labor Evaluation Frequency: 0 Monitor Mode: External Duration (sec)2399: 0 Resting Tone [place]: Relaxed Heart Rate FHR Baseline Rate: 135 Monitor Mode: External US FHR Baseline Changes: No Baseline Change Variability: Moderate 6-25 bpm Accelerations: Prolonged Decelerations: Variable Pain Assessment Pain Scale: 0 Pain Goal: 0 Datetime: 09/20/2018 03:20 Stage of : Antepartum Maternal Assessment Level of Consciousness: Fully Conscious Labor Evaluation Frequency: 0 Monitor Mode: External Duration (sec)2399: 0 Resting Tone [place]: Relaxed Heart Rate FHR Baseline Rate: 130 Monitor Mode: External US FHR Baseline Changes: No Baseline Change Variability: Moderate 6-25 bpm Accelerations: Prolonged Decelerations: Variable Pain Assessment Pain Scale: 0 Pain Goal: 0 Datetime: 09/20/2018 02:51 Stage of : Antepartum Datetime: 09/20/2018 02:40 Stage of : Antepartum Datetime: 09/20/2018 02:20 Stage of : Antepartum Maternal Assessment Level of Consciousness: Fully Conscious Labor Evaluation Frequency: 0 Monitor Mode: External Duration (sec)2399: 0 Resting Tone [place]: Relaxed Heart Rate FHR Baseline Rate: 130 Monitor Mode: External US FHR Baseline Changes: No Baseline Change Variability: Moderate 6-25 bpm Accelerations: Prolonged Decelerations: Variable Pain Assessment Pain Scale: 0 Pain Goal: 0 Datetime: 09/20/2018 01:20 Stage of : Antepartum Maternal Assessment Level of Consciousness: Fully Conscious Labor Evaluation Frequency: 0 Monitor Mode: External Duration (sec)2399: 0 Resting Tone [place]: Relaxed Heart Rate FHR Baseline Rate: 130 Monitor Mode: External US FHR Baseline Changes: No Baseline Change Variability: Moderate 6-25 bpm Accelerations: Prolonged Decelerations: Variable Pain Assessment Pain Scale: 0 Pain Goal: 0 Datetime: 09/20/2018 00:20 Stage of : Antepartum Maternal Assessment Level of Consciousness: Fully Conscious Temperature Route: Oral Labor Evaluation Frequency: 0 Monitor Mode: External Duration (sec)2399: 0 Resting Tone [place]: Relaxed Heart Rate FHR Baseline Rate: 130 Monitor Mode: External US FHR Baseline Changes: No Baseline Change Variability: Moderate 6-25 bpm Accelerations: Prolonged Decelerations: Variable Pain Assessment Pain Scale: 0 Pain Goal: 0 Datetime: 09/19/2018 23:30 Stage of : Antepartum Maternal Assessment Level of Consciousness: Fully Conscious Labor Evaluation Frequency: irritability Monitor Mode: External Resting Tone [place]: Relaxed Heart Rate FHR Baseline Rate: 130 Monitor Mode: External US FHR Baseline Changes: No Baseline Change Variability: Moderate 6-25 bpm Accelerations: Prolonged Decelerations: Variable Pain Assessment Pain Scale: 0 Pain Goal: 0 Datetime: 09/19/2018 22:30 Stage of : Antepartum Maternal Assessment Level of Consciousness: Fully Conscious Labor Evaluation Frequency: x2 Monitor Mode: External Duration (sec)2399: 40-70 Quality: Mild Resting Tone [place]: Relaxed Heart Rate FHR Baseline Rate: 130 Monitor Mode: External US FHR Baseline Changes: No Baseline Change Variability: Moderate 6-25 bpm Accelerations: Prolonged Decelerations: Variable Pain Assessment Pain Scale: 0 Pain Goal: 0 Datetime: 09/19/2018 21:30 Stage of : Antepartum Maternal Assessment Level of Consciousness: Fully Conscious Labor Evaluation Frequency: x4 with irritibility Monitor Mode: External Duration (sec)2399: 40-70 Quality: Mild Resting Tone [place]: Relaxed Contraction Comments: Pt states they are not painful. Heart Rate FHR Baseline Rate: 120 Monitor Mode: External US FHR Baseline Changes: No Baseline Change Variability: Moderate 6-25 bpm Accelerations: Prolonged Decelerations: Variable Pain Assessment Pain Scale: 0 Pain Goal: 0 Datetime: 09/19/2018 20:34 Assessment Type: Ongoing Assessment Maternal Assessment Level of Consciousness: Fully Conscious DTR's/Clonus: DTRs 2+; No Clonus Headache: Denies Blurred Vision: No Respiratory Effort: Unlabored; Regular Rhythm; Equal Expansion Breath Sounds, Left: Clear and Equal Breath Sounds, Right: Clear and Equal Nausea/Vomiting: Denies RUQ Epigastric Pain: Denies Lower Extremities Edema: None Degree: None Upper Extremities Edema: None Degree: None Facial Edema: None Temperature Route: Oral Fall Risk Assessment History of Falling: (0) No Secondary Diagnosis: (0) No Ambulatory Aid: (0) Bedrest/Nurse Assist IV Therapy: (20) Yes Gait: (0) Normal/Bedrest/Immobile Mental Status: (0) Oriented to Own Ability Fall Score: 20 Fall Risk Score Definition: No Risk: No action required Labor Evaluation Frequency: irritability with occasional UC's Monitor Mode: External Duration (sec)2399: 40-70 Quality: Mild Resting Tone [place]: Relaxed Heart Rate FHR Baseline Rate: 120 Monitor Mode: External US FHR Baseline Changes: No Baseline Change Variability: Moderate 6-25 bpm Accelerations: Prolonged Decelerations: Variable Datetime: 09/19/2018 19:00 Labor Evaluation Frequency: x9 Monitor Mode: External Duration (sec)2399: 40-70 Quality: Mild Resting Tone [place]: Relaxed Heart Rate FHR Baseline Rate: 120 Monitor Mode: External US FHR Baseline Changes: No Baseline Change Variability: Moderate 6-25 bpm Accelerations: Prolonged Decelerations: Variable Category: Category II Datetime: 09/19/2018 18:26 Pain Assessment Pain Scale: 4 Pain Presence: Constant Pain Type: Ache Pain Location: Head Pain Relief Measures: Comfort Measures Datetime: 09/19/2018 18:01 Labor Evaluation Frequency: x1 Monitor Mode: External Duration (sec)2399: 50 Quality: Mild Resting Tone [place]: Relaxed Heart Rate FHR Baseline Rate: 120 Monitor Mode: External US FHR Baseline Changes: No Baseline Change Variability: Moderate 6-25 bpm Accelerations: 15X15 Decelerations: None Category: Category I Datetime: 09/19/2018 17:00 Labor Evaluation Frequency: 9 Monitor Mode: External Duration (sec)2399: 40-70 Quality: Mild Resting Tone [place]: Relaxed Heart Rate FHR Baseline Rate: 125 Monitor Mode: External US FHR Baseline Changes: No Baseline Change Variability: Moderate 6-25 bpm Accelerations: 15X15 Decelerations: None Category: Category I Datetime: 09/19/2018 16:16 Stage of : Antepartum Temperature Route: Oral Pain Assessment Pain Scale: 6 Pain Presence: Intermittent Pain Type: Contraction; Ache Pain Location: Abdomen Pain Relief Measures: Comfort Measures Datetime: 09/19/2018 16:00 Labor Evaluation Frequency: x6 Monitor Mode: External Duration (sec)2399: 30-100 Quality: Mild Resting Tone [place]: Relaxed Heart Rate FHR Baseline Rate: 125 Monitor Mode: External US FHR Baseline Changes: No Baseline Change Variability: Moderate 6-25 bpm Accelerations: 15X15 Decelerations: None Category: Category I Datetime: 09/19/2018 15:02 Labor Evaluation Frequency: none Monitor Mode: External Resting Tone [place]: Relaxed Contraction Comments: uterine irritability noted Heart Rate FHR Baseline Rate: 120 Monitor Mode: External US FHR Baseline Changes: No Baseline Change Variability: Moderate 6-25 bpm Accelerations: 15X15 Decelerations: Variable Datetime: 09/19/2018 14:00 Labor Evaluation Frequency: x1 Monitor Mode: External Duration (sec)2399: 40 Quality: Mild Resting Tone [place]: Relaxed Heart Rate FHR Baseline Rate: 120 Monitor Mode: External US FHR Baseline Changes: No Baseline Change Variability: Moderate 6-25 bpm Accelerations: 15X15 Decelerations: None Category: Category I Datetime: 09/19/2018 13:00 Labor Evaluation Frequency: None Monitor Mode: External Resting Tone [place]: Relaxed Heart Rate FHR Baseline Rate: 125 Monitor Mode: External US FHR Baseline Changes: No Baseline Change Variability: Moderate 6-25 bpm Accelerations: 15X15 Decelerations: None Category: Category I Datetime: 09/19/2018 12:56 Time of Arrival: 09/19/2018 12:22 EGA: 34.2 Arrived By: Ambulatory Arrived From: Home Chief Complaint: C/O UC'S SINCE 3 AM, UC'S APPROX EVERY 8-10 MIN, SCANT BLEEDING Movement: Present Rupture of Membranes: Denies Vaginal Discharge: Denies Recent Sexual Intercouse: Denies Datetime: 09/19/2018 12:00 Labor Evaluation Frequency: x4 Monitor Mode: External Duration (sec)2399: 40-50 Quality: Mild Resting Tone [place]: Relaxed Heart Rate FHR Baseline Rate: 130 Monitor Mode: External US FHR Baseline Changes: No Baseline Change Variability: Moderate 6-25 bpm Accelerations: 15X15 Decelerations: None Category: Category I Datetime: 09/19/2018 11:17 Pain Assessment Pain Scale: 0 Pain Presence: None/Denies Pain Type: N/A Datetime: 09/19/2018 10:59 Labor Evaluation Frequency: x1 Monitor Mode: External Duration (sec)2399: 40 Quality: Mild Resting Tone [place]: Relaxed Heart Rate FHR Baseline Rate: 120 Monitor Mode: External US FHR Baseline Changes: No Baseline Change Variability: Moderate 6-25 bpm Accelerations: 15X15 Decelerations: Variable Datetime: 09/19/2018 10:01 Labor Evaluation Frequency: x3 Monitor Mode: External Duration (sec)2399: 40-60 Quality: Mild Resting Tone [place]: Relaxed Heart Rate FHR Baseline Rate: 120 Monitor Mode: External US FHR Baseline Changes: No Baseline Change Variability: Moderate 6-25 bpm Accelerations: 15X15 Decelerations: None Category: Category I Datetime: 09/19/2018 09:00 Labor Evaluation Frequency: x4 Monitor Mode: External Duration (sec)2399: 40-60 Quality: Mild Resting Tone [place]: Relaxed Heart Rate FHR Baseline Rate: 125 Monitor Mode: External US FHR Baseline Changes: No Baseline Change Variability: Moderate 6-25 bpm Accelerations: 15X15 Decelerations: None Category: Category I Datetime: 09/19/2018 08:31 Assessment Type: Ongoing Assessment Maternal Assessment Level of Consciousness: Fully Conscious DTR's/Clonus: DTRs 2+; No Clonus Headache: Denies Blurred Vision: No Respiratory Effort: Unlabored; Regular Rhythm; Equal Expansion Breath Sounds, Left: Clear and Equal Breath Sounds, Right: Clear and Equal Nausea/Vomiting: Denies RUQ Epigastric Pain: Denies Lower Extremities Edema: None Degree: None Upper Extremities Edema: None Degree: None Facial Edema: None Fall Risk Assessment History of Falling: (0) No Secondary Diagnosis: (0) No Ambulatory Aid: (0) Bedrest/Nurse Assist IV Therapy: (20) Yes Gait: (0) Normal/Bedrest/Immobile Mental Status: (0) Oriented to Own Ability Fall Score: 20 Fall Risk Score Definition: No Risk: No action required Datetime: 09/19/2018 08:23 Stage of : Antepartum Temperature Route: Oral Pain Assessment Pain Scale: 0 Pain Presence: None/Denies Pain Type: N/A Datetime: 09/19/2018 08:00 Labor Evaluation Frequency: x3 Monitor Mode: External Duration (sec)2399: 40-50 Quality: Mild Resting Tone [place]: Relaxed Contraction Comments: pt denies feeling UCs Heart Rate FHR Baseline Rate: 125 Monitor Mode: External US FHR Baseline Changes: No Baseline Change Variability: Moderate 6-25 bpm Accelerations: Prolonged Decelerations: None Category: Category I Datetime: 09/19/2018 07:35 Stage of : Antepartum Datetime: 09/19/2018 06:50 Stage of : Antepartum Labor Evaluation Frequency: 0 Monitor Mode: External Quality: Moderate Pattern: Normal: <= 5 Contractions in 10 Minutes Resting Tone [place]: Relaxed Heart Rate FHR Baseline Rate: 122 Monitor Mode: External US Variability: Moderate 6-25 bpm Accelerations: 15X15 Decelerations: None Pain Assessment Pain Scale: 0 Pain Presence: None/Denies Pain Goal: 0 Datetime: 09/19/2018 05:50 Stage of : Antepartum Labor Evaluation Frequency: 0 Monitor Mode: External Quality: Moderate Pattern: Normal: <= 5 Contractions in 10 Minutes Resting Tone [place]: Relaxed Heart Rate FHR Baseline Rate: 122 Monitor Mode: External US Variability: Moderate 6-25 bpm Accelerations: 15X15 Decelerations: None Comments: Pt in BR extended time. Pain Assessment Pain Scale: 0 Pain Presence: None/Denies Pain Goal: 0 Datetime: 09/19/2018 05:02 Stage of : Antepartum Temperature Route: Oral Monitor Mode: External Quality: Moderate Pattern: Normal: <= 5 Contractions in 10 Minutes Resting Tone [place]: Relaxed Heart Rate FHR Baseline Rate: 122 Monitor Mode: External US Variability: Moderate 6-25 bpm Accelerations: 15X15 Decelerations: None Pain Assessment Pain Scale: 0 Pain Presence: None/Denies Pain Goal: 0 Datetime: 09/19/2018 04:02 Stage of : Antepartum Monitor Mode: External Quality: Moderate Pattern: Normal: <= 5 Contractions in 10 Minutes Resting Tone [place]: Relaxed Heart Rate FHR Baseline Rate: 122 Monitor Mode: External US Variability: Moderate 6-25 bpm Accelerations: 15X15 Decelerations: None Pain Assessment Pain Scale: 0 Pain Presence: None/Denies Pain Goal: 0 Datetime: 09/19/2018 03:20 Stage of : Antepartum Labor Evaluation Frequency: 0 Monitor Mode: External Quality: Moderate Pattern: Normal: <= 5 Contractions in 10 Minutes Resting Tone [place]: Relaxed Heart Rate FHR Baseline Rate: 122 Monitor Mode: External US Variability: Moderate 6-25 bpm Accelerations: 15X15 Decelerations: None Pain Assessment Pain Scale: 0 Pain Presence: None/Denies Pain Goal: 0 Datetime: 09/19/2018 02:56 Stage of : Antepartum Datetime: 09/19/2018 02:51 Stage of : Antepartum Datetime: 09/19/2018 02:31 Stage of : Antepartum Datetime: 09/19/2018 02:21 Temperature Route: Oral Labor Evaluation Frequency: IRREGULAR Monitor Mode: External Duration (sec)2399: 50-60 Quality: Moderate Pattern: Normal: <= 5 Contractions in 10 Minutes Resting Tone [place]: Relaxed Heart Rate FHR Baseline Rate: 125 Monitor Mode: External US Variability: Moderate 6-25 bpm Accelerations: 15X15 Decelerations: None Pain Assessment Pain Scale: 0 Pain Presence: None/Denies Pain Goal: 0 Pain Assessment Comments: Pt given Terb. x 2, States no pain from UC's now. Datetime: 09/19/2018 00:11 Fall Score: 0 Fall Risk Score Definition: No Risk: No action required Datetime: 09/18/2018 21:42 EGA: 34.1 Datetime: 09/18/2018 21:21 Fall Score: 0 Fall Risk Score Definition: No Risk: No action required Datetime: 08/05/2018 14:31 Fall Score: 0 Fall Risk Score Definition: No Risk: No action required Datetime: 08/05/2018 14:25 EGA: 27.6 Datetime: 08/03/2018 20:21 EGA: 27.4 Fall Score: 0 Fall Risk Score Definition: No Risk: No action required Datetime: 06/20/2018 14:44 EGA: 21.2 Datetime: 06/20/2018 14:42 Fall Score: 0 Fall Risk Score Definition: No Risk: No action required
--- NOTE | 2018-10-29 05:36 | HP ---
Date/Time of Note Date/Time of Note DATE: 10/29/18 TIME: 05:33 OB - History Hx of Present Free Text/Dictation October 28, 2018 : 4 Para: 3 Care: Good Care Other Concerns: 27-year-old G4, P3 with IUP at 39 weeks and 4 days presented with complaint of uterine contractions. Antepartum course was uncomplicated. care with Dr. Todd Ching. She complains of painful contractions and she was noted to be in latent phase of labor and desires to proceed with induction of labor. She was admitted for management of labor. Past Family/Social History * Past Medical, Surgical, Family and Obstetric Histories reviewed from chart. Blood Type: B+ Rubella: immune RPR/VDRL: Negative GBS Status: Negative HBsAG: Negative OB Admission Exam Vital Signs Vital Signs Vital Signs Date Temp Pulse Resp B/P (MAP) Pulse Ox O2 O2 Flow FiO2 Time Delivery Rate 10/28/18 98.3 21:01 10/28/18 86 18 144/67 Room Air 19:21 (92) Physical Exam HEENT: WNL Lungs: Clear Abdomen: WNL Extremities: Normal Cervical Dilatation: 2cm Effacement: 50% Station: -3 Membranes: Intact Heart Rate: 130's Accelerations: Accelerations Present Contractions on Admission: < 5 Minutes Apart Intensity: Moderate Last 72 hours Lab Results CBC & BMP 10/28/18 23:47 OB Assessment/Plan Other Assessment: IUP at 39 weeks and 4 days Early labor Latent phase. Patient desires to proceed with induction due to painful contractions. Risk and benefit of induction discussed with patient. Desires to proceed. Admit to labor and delivery Labor augmentation/induction Charge nurse on labor and delivery was notified Anesthesia when in active labor per patient's request for pain control Anticipate HENRIK BASS MD Oct 29, 2018 05:36
[2018-10-30] MEDS: MISOPROSTOL 50 MCG CAPSULE PO SCH (01:14)
[2018-10-30] MEDS ORDERED: OXYTOCIN 30 UNITS/LR 500 ML IV SCH (07:00)
[2018-10-30] MEDS: LACTATED RINGER'S 1,000 ML IV SCH ×2 (07:21→15:17)
[2018-10-31] MEDS: LACTATED RINGER'S 1,000 ML IV SCH ×3 (00:25→15:47)
--- NOTE | 2018-10-31 04:43 | PREAC ---
Date/Time of Note Date/Time of Note DATE: 10/31/18 TIME: 04:41 Anesthesia Eval and Record Evaluation Time Pre-Procedure Interview DATE: 10/31/18 TIME: 04:41 Age 27 Sex female NPO: 8 hrs Preoperative diagnosis in labor Planned procedure Labor epidural Past Medical History Past Medical History: Includes GI: Morbid obesity Surgery & Anesthesia Issues No known issue Meds Anticoagulation: No Beta Niels within 24 hr: No Reason Beta Niels not given: Pt. not on B-Niels Reported Medications Vit No.124/Iron/FA ( Vitamin Tablet) 1 Each Tablet, 1 EACH PO DAILY, TAB 08/03/18 Current Medications Lactated Ringer's 1,000 ml @ 125 mls/hr Q8H IV Last administered on 10/31/18at 00:25; Admin Dose 125 MLS/HR; Start 10/28/18 at 23:47 Butorphanol Tartrate (Stadol) 2 mg Q2H PRN IV .PAIN SCALE 6-10; Start 10/29/18 at 00:00 Lidocaine (Xylocaine 1% (Mpf)) 30 ml ONCE PRN INJ .EPISIOTOMY; Start 10/29/18 at 00:00 Oxytocin/Lactated Ringer's 500 ml @ 500 mls/hr ONCE POST IV ; Start 10/29/18 at 00:00 Oxytocin/Lactated Ringer's 500 ml @ 125 mls/hr POST IV ; Start 10/29/18 at 00:00 Ibuprofen (Motrin) 600 mg ONCE PRN PO .PAIN 1-5; Start 10/29/18 at 00:00 Lactated Ringer's 1,000 ml @ 2,000 mls/hr Q30M PRN IV .ANESTHESIA Last administered on 10/31/18at 04:28; Admin Dose 2,000 MLS/HR; Start 10/28/18 at 23:47 Oxytocin/Lactated Ringer's 500 ml @ 0 mls/hr ONCE PRN IV .VAGINAL BLEEDING; St art 10/29/18 at 00:00 Methylergonovine Maleate (Methergine) 0.2 mg ONCE PRN IM .VAGINAL BLEEDING; Sta rt 10/29/18 at 00:00 Carboprost Tromethamine (Hemabate) 250 mcg ONCE PRN IM .VAGINAL BLEEDING; Start 10/29/18 at 00:00 Misoprostol (Cytotec) 1,000 mcg ONCE PRN [place] .VAGINAL BLEEDING; Start 10/29/18 at 00:00 Oxytocin/Lactated Ringer's 500 ml @ 0 mls/hr FOR INDUCTION IV Last administered on 10/30/18at 10:51; Admin Dose 1 MLS/HR; Start 10/30/18 at 07:00 Meds reviewed: Yes Allergies Coded Allergies: No Known Allergy (Unverified , 10/29/18) Allergies Reviewed: Yes Labs/Studies Labs Reviewed: Reviewed by anesthesiologist Result Diagram: 10/28/18 2347 test: Positive Pre-procedure Exam Last vitals Vital Signs Date Temp Pulse Resp B/P (MAP) Pulse Ox O2 O2 Flow FiO2 Time Delivery Rate 10/28/18 98.3 21:01 10/28/18 86 18 144/67 Room Air 19:21 (92) Airway: Adequate mouth opening Mallampati: Mallampati II Teeth: Normal Lung: Normal Heart: Normal ASA Physical Status ASA physical status: 3 Emergency: None Planned Anesthetic Neuraxial: Epidural Pre-operative Attestations Prior to commencing anesthesia and surgery, the patient was re-evaluated, there was verification of: *The patient's identity *The results of appropriate recent lab work and preoperative vital signs *The above evaluation not changing prior to induction *Anesthetic plan, risk benefits, alternative and complications discussed with patient/family; questions answered; patient/family understands, accepts and wishes to proceed. ROSALBA SPANGLER MD Oct 31, 2018 04:43
[2018-10-31] MEDS ORDERED: FENTAnyl 2MCG/ML-ROPIV 0.2% 100 ML ONE (04:45)
[2018-10-31] MEDS ORDERED: DIPHENHYDRAMINE 50 MG INJ IV PRN (05:00)
[2018-10-31] MEDS ORDERED: NALOXONE (0.4 MG/ML) INJ IV PRN (05:00)
[2018-10-31] MEDS ORDERED: FENTAnyl 2MCG/ML-ROPIV 0.2% 100 ML BAG EPI SCH (05:00)
[2018-10-31] MEDS ORDERED: EPHEDrine 25 MG/5 ML SYG IV PRN (05:00)
[2018-10-31] MEDS ORDERED: ONDANSETRON 4 MG INJ IV PRN (05:00)
--- NOTE | 2018-10-31 10:22 | LDN ---
Date/Time of Note Date/Time of Note DATE: 10/31/18 TIME: 10:20 Delivery Summary Spontaneous vaginal delivery of a viable male infant at term in OA presentation. Nuchal cord reduced x1. Body cord noted x 1. Mouth and nares bulb suctioned. Cord clamped x2 and divided between the clamps by father of the baby. placed on mother's abdomen. Placenta delivered spontaneously, intact with three-vessel cord. Cord blood collected. Perineum and cervix inspected without evidence of laceration. Hemostasis noted. Fundus firm. Mated blood loss 400 mL weight 3450 g Apgars 9/9 Placenta Delivered: Spontaneously WENDI AREVALO MD Oct 31, 2018 10:22
[2018-10-31] MEDS ORDERED: OXYTOCIN 30 UNITS/LR 500 ML IV SCH (10:23)
[2018-10-31] MEDS ORDERED: MISOPROSTOL 200 MCG TAB PR PRN (10:30)
[2018-10-31] MEDS ORDERED: NACL 0.9% 3 ML SYG IV SCH (10:30)
[2018-10-31] MEDS ORDERED: OXYTOCIN 30 UNITS/LR 500 ML IV PRN (10:30)
[2018-10-31] MEDS ORDERED: LANOLIN HPA 1 PKT TOP PRN (10:30)
[2018-10-31] MEDS ORDERED: CARBOPROST 250 MCG INJ IM PRN (10:30)
[2018-10-31] MEDS ORDERED: METHYLERGONOVINE 0.2 MG INJ IM PRN (10:30)
[2018-10-31 11:50] VITALS: BP 118/59; PULSE 83; RESP 18
[2018-10-31] MEDS: IBUPROFEN 600 MG TAB PO SCH ×2 (12:00→17:48)
[2018-10-31 15:16] VITALS: BP 115/63; PULSE 76; RESP 17
[2018-10-31 19:40] VITALS: BP 119/64; PULSE 74; RESP 18
[2018-10-31] MEDS: SENNA/DOCUSATE NA (8.6MG/50MG) TAB PO SCH (20:51)
[2018-11-01] VITALS: BP 129/67; PULSE 72; RESP 19
--- NOTE | 2018-11-01 01:44 | PAC ---
Date/Time of Note Date/Time of Note DATE: 11/01/18 TIME: 01:44 Post-Anesthesia Notes Post-Anesthesia Note Last documented vital signs Vital Signs Date Temp Pulse Resp B/P (MAP) Pulse Ox O2 O2 Flow FiO2 Time Delivery Rate 11/01/18 98.1 72 19 129/67 Room Air 00:00 (87) Activity: WNL Respiratory function: WNL Cardiovascular function: WNL Mental status: Baseline Pain reasonably controlled: Yes Hydration appropriate: Yes Nausea/Vomiting absent: Yes ROSALBA SPANGLER MD Nov 01, 2018 01:44
[2018-11-01 04:00] VITALS: BP 123/57; PULSE 77; RESP 18
[2018-11-01] MEDS: IBUPROFEN 600 MG TAB PO SCH ×3 (05:58→11:54)
[2018-11-01 08:15] VITALS: BP 117/59; PULSE 72; RESP 18
[2018-11-01] MEDS: SENNA/DOCUSATE NA (8.6MG/50MG) TAB PO SCH (09:19)
--- NOTE | 2018-11-01 14:15 | DS ---
Date/Time of Note Date/Time of Note DATE: 11/01/18 TIME: 14:15 Obstetrical Discharge Record Final Diagnosis Final Diagnosis: Term delivered Other Final Diagnosis Subjective: Patient without complaints. Tolerating regular diet. ambulating. voiding. Objective: Vital signs 117/59 hr78 H/H: 10.7/31.9 General: No apparent distress. Abdomen: Fundus firm two fingerbreadths below umbillicus Extremities nontender to palpation. Assessment/plan: 1. day#1-presented to the hospital at 39 weeks and 4 days in latent labor. She was augmented. Delivered vaginally on 10/31/2018. Her hospital course was uncomplicated. 2. Anemia acute blood loss-ferrous sulfate. Condition on Discharge Physical Assessment Patient Condition: Stable MILESTONE,WENDI RUELAS Nov 01, 2018 14:15
[2018-11-01] MEDS ORDERED: IBUP-1542 PO (14:16)
[2018-11-01] MEDS ORDERED: SENOKOTS PO (14:16)
[2018-11-01 16:00] VITALS: BP 123/65; PULSE 79; RESP 18
[2018-11-02] MEDS ORDERED: MEASLES,MUMPS,RUBELLA VACCINE INJ SC* ONE (09:00)
[2018-11-02] MEDS ORDERED: DIPHTH/TET/ACEL PERTUSS (ADULT) 0.5 ML VIAL IM* ONE (09:00)
--- NOTE | 2018-11-02 17:52 | DELSUM ---
Delivery Summary A-C Datetime Report Generated by CPN: 11/02/2018 17:52 DELIVERY PERSONNEL Parasitology Teacher: Allison Lorenzoebe MATERNAL INFORMATION Delivery Anesthesia: Epidural Medications in Delivery: LR 500ML PITOCIN 30 UNITS Delivery QBL (ml): 400 Placenta Cultured: No Maternal Complications: None LABOR SUMMARY EDC: 10/29/2018 00:00 No. Babies in Womb: 1 Attempted: No Labor Anesthesia: None LABOR INFORMATION Reason for Induction- Other: 40WKS Onset of Labor: 10/28/2018 10:30 Complete Dilatation: 10/31/2018 09:11 Cervical Ripening Agents: Cytotec @ 50 MCG Group B Beta Strep: Negative Antibiotics # of Doses: 0 Steroids Given: None Reason Steroids Not Administered: Not Applicable MEMBRANES Membranes Rupture Method: Spontaneous Rupture of Membranes: 10/31/2018 02:57 Length of Rupture (hr): 6.50 Amniotic Fluid Color: Clear Amniotic Fluid Amount: Moderate Amniotic Fluid Odor: Normal STAGES OF LABOR Stage 1 hr: 70 Stage 1 min: 41 Stage 2 hr: 0 Stage 2 min: 16 Stage 3 hr: 0 Stage 3 min: 4 Total Time in Labor hr: 71 Total Time in Labor min: 1 VAGINAL DELIVERY Episiotomy: None Laceration Extension: N/A Laceration Type: None Laceration Repair: Not Applicable Initial Vag Sponge Count: 10 Final Vag Sponge Count: 10 Initial Vag Sharps Count: 1 Final Vag Sharps Count: 1 Sponge Count Correct: Yes; Vaginal Sweep Performed Sharps Count Correct: Yes BABY A INFORMATION Delivery Date/Time: 10/31/2018 09:27 Method of Delivery: Vaginal Born in Route : No : N/A Forceps: N/A Vacuum Extraction: N/A Shoulder Dystocia : N/A SHOULDER DYSTOCIA BABY A Infant Delivery Date/Time: 10/31/2018 09:27 PRESENTATION/POSITION BABY A Presentation: Cephalic Cephalic Presentation: Vertex Vertex Position: Left Occipital Anterior Breech Presentation: N/A PLACENTA INFORMATION BABY A Placenta Delivery Time : 10/31/2018 09:31 Placenta Method of Delivery: Spontaneous Placenta Status: Delivered SCORES BABY A Heart Rate 1 min: >100 bpm Resp Effort 1 min: Good Cry Reflex Irritability 1 min: Cough/Sneeze/Pulls Away Muscle Tone 1 min: Active Motion Color 1 min: Body [place], Extremit Blue Resuscitation Effort 1 min: Tactile Stimulation SCORE 1 MIN: 9 Heart Rate 5 min: >100 bpm Resp Effort 5 min: Good Cry Reflex Irritability 5 min: Cough/Sneeze/Pulls Away Muscle Tone 5 min: Active Motion Color 5 min: Body [place], Extremit Blue Resuscitation Effort 5 min: Tactile Stimulation SCORE 5 MIN: 9 INFORMATION BABY A Gestational Age at Delivery: 40.1 Gestational Status: Full Term- 39- 40.6 Weeks Infant Outcome : Liveborn, with signs of life Condition : Stable Infant Sex: Male IDENTIFICATION/MEDS BABY A ID Band Number: [id number] ID Band Location: Right Leg; Left Arm Sensor Applied: Yes Sensor Number: [id number] Sensor Location : Cord Clamp Vitamin K Given : Not Given Erythromycin Given: Not Given WEIGHT/LENGTH BABY A Birthweight (gm): 3495 Weight (lb): 7 Weight (oz): 11 Length (in): 20.00 Length (cm): 50.80 CORD INFORMATION BABY A No. Cord Vessels: 3 Nuchal Cord : N/A Nuchal Cord- Other: 0 True Knot: 0 Cord Blood Taken: Yes Banking/Donate Info: NO Suction: Mouth; Nose ASSESSMENT BABY A Complications: Multiple Variable Decels Physical Findings at Delivery: Molding of the Head; Within Normal Limits Respirations: Appears Normal Process Maintenance Technician/ALS Called : No Care By: SHERINE BAKERC Transferred To: Remains with Mother
== END 2018-11-01 17:20 | disposition home or self-care (01) | DRG 806 ==
LOC: OBT 18:36 → L-D 18:38 → OBT 23:35 → L-D 23:35 → PP1 10-31 11:40
PROVIDERS: ADMIT Obstetrics & Gynecology; ATTEND Obstetrics & Gynecology
PROC: 10E0XZZ Delivery of Products of Conception, External Approach (ICD-10-PCS; principal; 2018-10-31)
PROC: 3E033VJ Introduction of Other Hormone into Peripheral Vein, Percutaneous Approach (ICD-10-PCS; 2018-10-31)
DX: O69.81X0 Labor and delivery complicated by cord around neck, without compression, not applicable or unspecified (principal); D62 Acute posthemorrhagic anemia; Z37.0 Single live birth; O99.02 Anemia complicating childbirth; Z3A.39 39 weeks gestation of pregnancy
CPT/HCPCS: 76815; 76818; 80307; 85014; 85018; 85025; 85610; 85730; 86592; 86850; 86900; 86901; 87340; 96360; 99464; G0463; J2590; J3010; J7120

== ENCOUNTER 2018-12-15 19:46 | Emergency (ER) | payer OTHER ==
[~2018-12-15] VITALS: Ht 167.6 cm; Wt 103.1 kg
[~2018-12-15 19:46] MED LIST changes: +IBUP-1542 PO; +SENOKOTS PO
[2018-12-15 19:50] VITALS: BP 131/81; PULSE 86; RESP 19; Ht 167.6 cm; Wt 103.1 kg
[2018-12-15] MEDS ORDERED: IBUPROFEN 600 MG TAB PO ONE (21:00)
== END 2018-12-15 21:31 | disposition home or self-care (01) ==
LOC: FTE 19:46
DX: M77.9 Enthesopathy, unspecified (principal)
CPT/HCPCS: 29125; 73110; Z7502; Z7610